=== PATIENT | male | born 1935 | race Caucasian/White ===

== ENCOUNTER 2018-02-03 08:12 | Emergency (ER) | payer MEDICARE, OTHER ==
--- NOTE | 2018-02-03 08:22 | EDM.PDOC ---
ED HPI GENERAL MEDICAL PROBLEM - General Stated Complaint: SWOLLEN HAND Time Seen by Provider: 02/03/18 08:12 Source of Information: Reports: Patient, Family History Limitations: Reports: No Limitations - History of Present Illness INITIAL COMMENTS - FREE TEXT/NARRATIVE: 82 y.o.w.m came to the ed with his family due to left shoulder pain, left forearm swelling in the past few days. Pt is not able to ab duct his left shoulder. Pt does not remember a trauma. He noticed his left shoulder is sweller. The worst pain at his lat aspect of his left shoulder (deltoid) muscle. No other acute medical issues. BP 155/59 Pulse 76 RR 20 Pulse ox 98% on RA temp 36.8 pulse 65 Onset Date: 02/02/18 Onset Time: 09:00 Duration: Intermittent Location: Reports: Upper Extremity, Left Quality: Reports: Ache, Dull, Pressure Severity: Moderate Improves with: Reports: None, Rest Worsens with: Reports: Movement Context: Reports: Trauma (does not remmember a trauma) Associated Symptoms: Reports: No Other Symptoms Left Shoulder Pain Score (Numeric/FACES): 2 - Related Data Allergies Allergy/AdvReac Type Severity Reaction Status Date / Time aspirin Allergy Severe Anaphylactic Verified 02/03/18 08:34 Shock Home Meds: Home Meds Hydrochlorothiazide 25 mg PO DAILY 02/03/18 [History] amLODIPine Besylate [Amlodipine Besylate] 5 mg PO DAILY 02/03/18 [History] Review of Systems - Review of Systems Review Of Systems: See Below Constitutional: Reports: No Symptoms Eyes: Reports: No Symptoms Ears: Reports: No Symptoms Nose: Reports: No Symptoms Mouth/Throat: Reports: No Symptoms Respiratory: Reports: No Symptoms Cardiovascular: Reports: No Symptoms GI/Abdominal: Reports: No Symptoms Genitourinary: Reports: No Symptoms Musculoskeletal: Reports: Shoulder Pain Skin: Reports: No Symptoms Neurological: Reports: No Symptoms Psychiatric: Reports: No Symptoms ED EXAM, GENERAL - Physical Exam Exam: See Below Exam Limited By: Physical Impairment General Appearance: Alert, WD/WN, Mild Distress Eye Exam: Bilateral Eye: Normal Inspection Ears: Normal External Exam Ear Exam: Bilateral Ear: Auricle Normal Nose: Normal Inspection, Normal Mucosa, No Blood Throat/Mouth: Normal Inspection, Normal Lips Head: Atraumatic, Normocephalic Neck: Normal Inspection, Supple, Non-Tender, Full Range of Motion Respiratory/Chest: No Respiratory Distress, Lungs Clear, Normal Breath Sounds ( with poor insp effort) Cardiovascular: Normal Peripheral Pulses Peripheral Pulses: 1+: Brachial (R) GI/Abdominal: Normal Bowel Sounds, Soft, Non-Tender, No Organomegaly (Male) Exam: Deferred Rectal (Males) Exam: Deferred Back Exam: Normal Inspection Extremities: Joint Swelling (left shoulder), Limited Range of Motion Neurological: Alert, Oriented, CN II-XII Intact, Normal Cognition, No Motor/ Sensory Deficits, Abnormal Gait (baseline) Psychiatric: Normal Affect, Normal Mood Skin Exam: Warm, Dry, Intact, Normal Color, No Rash Lymphatic: No Adenopathy Course - Vital Signs Text/Narrative:: 82 y.o.w.m came to the ed with his family due to left shoulder pain, left forearm swelling in the past few days. Pt is not able to ab duct his left shoulder. Pt does not remember a trauma. He noticed his left shoulder is sweller. The worst pain at his lat aspect of his left shoulder (deltoid) muscle. No other acute medical issues. BP 155/59 Pulse 76 RR 20 Pulse ox 98% on RA temp 36.8 pulse 65 PE: Thin 82 y.o.w.m with left shoulder pain and forearm swelling for 3 - 5 days. Limited ROM left shoulder. Imagin: Left sided closed humeral head Fx, comminuted, official report is pending Impression: Left sided closed humeral head Fx, comminuted Tx: Armsling Reexam: Improved Plan: Ice, Motrin, F/U with Dr. Hurd at 3 pm Wednesday. Last Recorded V/S: Last Vital Signs Temp 36.7 C 02/03/18 09:45 Pulse 75 02/03/18 09:45 Resp 20 02/03/18 09:45 BP 158/60 H 02/03/18 09:45 Pulse Ox 100 02/03/18 09:45 Departure - Departure Time of Disposition: 09:20 Disposition: Home, Self-Care 01 Condition: Good Clinical Impression: Fracture of humeral head, left, closed Qualifiers: Encounter type: initial encounter Qualified Code(s): S42.292A - Other displaced fracture of upper end of left humerus, initial encounter for closed fracture - Discharge Information Referrals: Chester Hernandez MD [Primary Care Provider] - Claude Hurd DO [Physician] - Forms: ED Department Discharge Additional Instructions: Please wear an armsling on your left shoulder, apply ice and take motin for pain. elevate left shoulder if possible. Please come back to the ed if your symptoms get worse acutely
--- NOTE | 2018-02-04 10:30 | CR ---
INDICATION: Shoulder pain. LEFT SHOULDER: Three views of the left shoulder revealed a severely comminuted fracture of the proximal humeral metaphysis extending through the surgical and anatomic neck area with relatively mild deformity - lateral angulation is suggested at the fracture site. Some impaction of fracture fragments may be present. There also appears to be subluxation of the humeral joint surface with respect to the glenoid fossa. Adjacent ribs appear to be normal. Overall demineralization is suggested, compatible with osteomalacia or osteoporosis - correlate clinically. MTDD
== END 2018-02-03 09:45 | disposition home or self-care (01) ==
LOC: FB.ED 08:12
DX: S42.202A Unspecified fracture of upper end of left humerus, initial encounter for closed fracture (principal); Z88.6 Allergy status to analgesic agent; Z79.899 Other long term (current) drug therapy; X58.XXXA Exposure to other specified factors, initial encounter
CPT/HCPCS: 73030-LT; 99283

== ENCOUNTER 2021-08-04 06:51 | Inpatient (IN) | payer MEDICARE, OTHER ==
[2021-08-04] MEDS ORDERED: Sodium Chloride 0.9% 1,000 ML IV SCH (07:30)
--- NOTE | 2021-08-04 07:38 | EDM.PDOC ---
ED HPI GENERAL MEDICAL PROBLEM - General Stated Complaint: WEAKNESS Time Seen by Provider: 08/04/21 07:15 Source of Information: Reports: Patient, Family History Limitations: Reports: No Limitations - History of Present Illness INITIAL COMMENTS - FREE TEXT/NARRATIVE: Patient presented to the ED because of frequent falls due to generalized weakness especially his legs. He had fallen 4 times this weak the last one at 1 am this morning when he went to the rec room his legs gave out and fell. There was no LOC but c/o left hip pain. He has abrasion on his head and multiple skin tears on both arms. He also has soft stools for 1 month now and poor oral intake. There is no N/V or abdominal pain. No urinary symptoms, fever, chills, cough or cold. He was vaccinated with Covid and denies having any recent exposure. - Related Data Allergies Allergy/AdvReac Type Severity Reaction Status Date / Time aspirin Allergy Severe Anaphylactic Verified 02/03/18 08:34 Shock Home Meds: Home Meds amLODIPine Besylate [Amlodipine Besylate] 5 mg PO DAILY 02/03/18 [History] hydroCHLOROthiazide [Hydrochlorothiazide] 25 mg PO DAILY 02/03/18 [History] Past Medical History - Past Health History Medical/Surgical History: Denies Medical/Surgical History Cardiovascular History: Reports: Hypertension Social & Family History - Caffeine Use Caffeine Use: Reports: Coffee ED ROS GENERAL - Review of Systems Review Of Systems: See Below Constitutional: Reports: Weakness HEENT: Reports: No Symptoms Respiratory: Reports: No Symptoms Cardiovascular: Reports: No Symptoms Endocrine: Reports: No Symptoms GI/Abdominal: Reports: Diarrhea : Reports: No Symptoms Musculoskeletal: Reports: No Symptoms Skin: Reports: Change in Color Neurological: Reports: No Symptoms ED EXAM, GENERAL - Physical Exam Exam: See Below Exam Limited By: No Limitations General Appearance: Alert, No Apparent Distress Ears: Normal External Exam, Normal Canal, Hearing Grossly Normal Nose: Normal Inspection, Normal Mucosa, No Blood Throat/Mouth: Normal Inspection, Normal Lips, Normal Teeth, Normal Gums Head: Atraumatic, Normocephalic Neck: Normal Inspection, Supple, Non-Tender, Full Range of Motion Respiratory/Chest: No Respiratory Distress, Lungs Clear, Normal Breath Sounds, No Accessory Muscle Use, Chest Non-Tender Cardiovascular: Normal Peripheral Pulses, Regular Rate, Rhythm, No Edema, No Gal lop, No JVD, No Murmur, No Rub GI/Abdominal: Normal Bowel Sounds, Soft, Non-Tender, No Organomegaly, No Distention, No Abnormal Bruit, No Mass Back Exam: Normal Inspection, Full Range of Motion Extremities: Normal Inspection, Normal Range of Motion, Other (tenderness over the left hip) Neurological: Alert, Oriented, CN II-XII Intact, Normal Cognition Psychiatric: Normal Affect Skin Exam: Warm, Other (fungus toe nails and groin area) Course - Vital Signs Text/Narrative:: Lab/EKG/Xray-hip, Head CT resultwas reviewed and discussed with patient NS 1 L in 2 hours Covid-negative Code status:DNR/DNI Last Recorded V/S: Last Vital Signs Temp 36.4 C 08/04/21 06:55 Pulse 72 08/04/21 06:55 Resp 18 08/04/21 06:55 BP 148/72 H 08/04/21 06:55 Pulse Ox 98 08/04/21 06:55 - Orders/Labs/Meds Orders: Active Orders 24 hr Category Date Time Status Patient Status Manage Transfer [TRANSFER] Routine ADT 08/04/21 09:50 Ordered Chest 1V Frontal [CR] Stat Exams 08/04/21 07:14 Taken Head wo Cont [CT] Stat Exams 08/04/21 07:14 Taken Hip Min 2V or 3V w Pelvis Lt [CR] Stat Exams 08/04/21 07:41 Taken CORONAVIRUS COVID-19 CANDI [MOLEC] Stat Lab 08/04/21 08:30 Ordered Sodium Chloride 0.9% [Normal Saline] 1,000 ml Med 08/04/21 07:30 Active IV ASDIRECTED Sodium Chloride 0.9% [Saline Flush] Med 08/04/21 07:14 Active 10 ml FLUSH ASDIRECTED PRN Saline Lock Insert [OM.PC] Routine Oth 08/04/21 07:14 Ordered EKG 12 Lead [EK] Routine Ther 08/04/21 07:14 Ordered Medication Orders Sodium Chloride (Normal Saline) 1,000 mls @ 500 mls/hr IV ASDIRECTED MAKENZIE Sodium Chloride (Sodium Chloride 0.9% 10 Ml Syringe) 10 ml FLUSH ASDIRECTED PRN PRN Reason: Keep Vein Open Labs: Laboratory Tests 08/04/21 08/04/21 08/04/21 Range/Units 07:30 08:00 08:00 WBC 9.7 (3.2-10.1) x10-3/uL RBC 4.05 (3.90-5.90) x10(6)uL Hgb 13.4 (12.9-17.7) g/dL Hct 38.9 (38.3-50.1) % MCV 96.0 (80.8-98.7) fL MCH 33.0 (27.0-33.3) pg MCHC 34.3 (28.7-35.3) g/dL RDW 17.0 H (12.4-15.0) % Plt Count 215 (117-477) x10(3)uL MPV 8.7 (6.7-11.0) fL Neut % (Auto) 85.3 H (40.3-71.8) % Lymph % (Auto) 3.9 L (15.8-45.3) % [place] % (Auto) 10.5 (5.5-15.2) % Eos % (Auto) 0.1 (0.1-6.8) % Baso % (Auto) 0.2 L (0.3-3.8) % Neut # (Auto) 8.3 H (1.7-6.9) x10-3/uL Lymph # (Auto) 0.4 L (0.5-4.5) x10-3/uL [place] # (Auto) 1.0 (0.0-1.2) x10-3/uL Eos # (Auto) 0.0 (0.0-0.6) x10-3/uL Baso # (Auto) 0.0 (0.0-0.3) x10-3/uL Sodium 118 L* (135-145) mmol/L Potassium 3.2 L (3.5-5.3) mmol/L Chloride 83 L* (100-110) mmol/L Carbon Dioxide 26 (21-32) mmol/L BUN 12 (7-18) mg/dL Creatinine 0.7 (0.70-1.30) mg/dL Est Cr Clr Drug Dosing TNP Estimated GFR (MDRD) > 60 (>60) BUN/Creatinine Ratio 17.1 (9-20) Glucose 101 (80-116) mg/dL Calcium 8.4 L (8.6-10.2) mg/dL Total Bilirubin 2.1 H (0.1-1.3) mg/dL AST 22 (5-25) IU/L ALT 18 (12-36) U/L Alkaline Phosphatase 57 (56-112) IU/L Creatine Kinase 164 H (60-160) IU/L Troponin I (4.0-60.3) pg/mL Total Protein 6.0 (6.0-8.0) g/dL Albumin 3.3 (3.2-4.6) g/dL Globulin 2.7 g/dL Albumin/Globulin Ratio 1.2 Urine Color Yellow (YELLOW) Urine Appearance Slightly cloudy (CLEAR) Urine pH 7.0 H (5.0-6.5) Ur Specific [place] 1.010 (1.010-1.025) Urine Protein Negative (NEGATIVE) mg/dL Urine Glucose (UA) Normal (NORMAL) mg/dL Urine Ketones 15 H (NEGATIVE) mg/dL Urine Occult Blood Large H (NEGATIVE) Urine Nitrite Negative (NEGATIVE) Urine Bilirubin Negative (NEGATIVE) Urine Urobilinogen 4 H (NEGATIVE) mg/dL Ur Leukocyte Esterase Negative (NEGATIVE) Urine RBC 20-30 H (0-5) Urine WBC 0-5 (0-5) Ur Squamous Epith Cells Few H (NS,R,O) Urine Bacteria Many H (NS) 08/04/21 Range/Units 08:00 WBC (3.2-10.1) x10-3/uL RBC (3.90-5.90) x10(6)uL Hgb (12.9-17.7) g/dL Hct (38.3-50.1) % MCV (80.8-98.7) fL MCH (27.0-33.3) pg MCHC (28.7-35.3) g/dL RDW (12.4-15.0) % Plt Count (117-477) x10(3)uL MPV (6.7-11.0) fL Neut % (Auto) (40.3-71.8) % Lymph % (Auto) (15.8-45.3) % [place] % (Auto) (5.5-15.2) % Eos % (Auto) (0.1-6.8) % Baso % (Auto) (0.3-3.8) % Neut # (Auto) (1.7-6.9) x10-3/uL Lymph # (Auto) (0.5-4.5) x10-3/uL [place] # (Auto) (0.0-1.2) x10-3/uL Eos # (Auto) (0.0-0.6) x10-3/uL Baso # (Auto) (0.0-0.3) x10-3/uL Sodium (135-145) mmol/L Potassium (3.5-5.3) mmol/L Chloride (100-110) mmol/L Carbon Dioxide (21-32) mmol/L BUN (7-18) mg/dL Creatinine (0.70-1.30) mg/dL Est Cr Clr Drug Dosing Estimated GFR (MDRD) (>60) BUN/Creatinine Ratio (9-20) Glucose (80-116) mg/dL Calcium (8.6-10.2) mg/dL Total Bilirubin (0.1-1.3) mg/dL AST (5-25) IU/L ALT (12-36) U/L Alkaline Phosphatase (56-112) IU/L Creatine Kinase (60-160) IU/L Troponin I 60.0 (4.0-60.3) pg/mL Total Protein (6.0-8.0) g/dL Albumin (3.2-4.6) g/dL Globulin g/dL Albumin/Globulin Ratio Urine Color (YELLOW) Urine Appearance (CLEAR) Urine pH (5.0-6.5) Ur Specific [place] (1.010-1.025) Urine Protein (NEGATIVE) mg/dL Urine Glucose (UA) (NORMAL) mg/dL Urine Ketones (NEGATIVE) mg/dL Urine Occult Blood (NEGATIVE) Urine Nitrite (NEGATIVE) Urine Bilirubin (NEGATIVE) Urine Urobilinogen (NEGATIVE) mg/dL Ur Leukocyte Esterase (NEGATIVE) Urine RBC (0-5) Urine WBC (0-5) Ur Squamous Epith Cells (NS,R,O) Urine Bacteria (NS) Meds: Medications Generic Name Dose Route Start Last Admin Trade Name Freq PRN Reason Stop Dose Admin Sodium Chloride 1,000 mls @ 500 mls/hr 08/04/21 07:30 Normal Saline IV ASDIRECTED MAKENZIE Sodium Chloride 10 ml 08/04/21 07:14 Sodium Chloride 0.9% 10 Ml Syringe FLUSH ASDIRECTED PRN Keep Vein Open Departure - Departure Time of Disposition: 10:00 Disposition: Admitted As Inpatient 67 Condition: Good Clinical Impression: Frequent falls, Head injury, Contusion, hip, Hypomagnesemia, Hypokalemia, Skin tear, Cutaneous candidiasis, Onychomycosis - Discharge Information Referrals: PCP,None [Primary Care Provider] - Sepsis Event Note (ED) - Focused Exam Vital Signs: Vital Signs Temp Pulse Resp BP Pulse Ox 08/04/21 06:55 36.4 C 72 18 148/72 H 98 - My Orders Last 24 Hours: My Active Orders 08/04/21 07:14 Chest 1V Frontal [CR] Stat Head wo Cont [CT] Stat Sodium Chloride 0.9% [Saline Flush] 10 ml FLUSH ASDIRECTED PRN Saline Lock Insert [OM.PC] Routine EKG 12 Lead [EK] Routine 08/04/21 07:30 Sodium Chloride 0.9% [Normal Saline] 1,000 ml IV ASDIRECTED 08/04/21 07:41 Hip Min 2V or 3V w Pelvis Lt [CR] Stat 08/04/21 08:30 CORONAVIRUS COVID-19 CANDI [MOLEC] Stat 08/04/21 09:50 Patient Status Manage Transfer [TRANSFER] Routine - Assessment/Plan Last 24 Hours: My Active Orders 08/04/21 07:14 Chest 1V Frontal [CR] Stat Head wo Cont [CT] Stat Sodium Chloride 0.9% [Saline Flush] 10 ml FLUSH ASDIRECTED PRN Saline Lock Insert [OM.PC] Routine EKG 12 Lead [EK] Routine 08/04/21 07:30 Sodium Chloride 0.9% [Normal Saline] 1,000 ml IV ASDIRECTED 08/04/21 07:41 Hip Min 2V or 3V w Pelvis Lt [CR] Stat 08/04/21 08:30 CORONAVIRUS COVID-19 CANDI [MOLEC] Stat 08/04/21 09:50 Patient Status Manage Transfer [TRANSFER] Routine
[2021-08-04] MEDS: Sodium Chloride 0.9% 10 ML Syringe FLUSH PRN (07:50)
--- NOTE | 2021-08-04 10:50 | PCM.EKG ---
#1 Interpretation EKG Date: 08/04/21 Time: 07:40 Rhythm: A-Fib Rate (Beats/Min): 71 Dexter: Normal P-Wave: Present QRS: Normal ST-T: Normal QT: Prolonged Comparison: NA - No Prior EKG EKG Interpretation Comments: Afib
[2021-08-04] MEDS ORDERED: Labetalol 20 MG/4 ML Syringe IVPUSH PRN (10:57)
--- NOTE | 2021-08-04 11:10 | PCM.HP.2 ---
H&P History of Present Illness - General Date of Service: 08/04/21 Admit Problem/Dx: Admission Diagnosis/Problem Admission Diagnosis/Problem Weakness Source of Information: Patient, Old Records, Provider - History of Present Illness Initial Comments - Free Text/Narative: Patient was taken to the emergency department due to frequent falls, his last fall was while going to the restroom early this morning at his home. He could not get up so he phoned a friend for help. He states that he has fallen several times over the last several weeks. These are falls due to "my legs give out" and weakness. Imaging in the emergency department was negative for acute fracture or head injury. He did have significant hyponatremia at 118. Review of his past medical records shows actually normal sodium in March or April of this year, approximately 3 to 4 months ago. He was started on blood pressure medication, amlodipine and hydrochlorothiazide. He has recently complained of a rash in his groin and treated with steroid cream and barrier creams. He also complains of difficulty urinating. 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 Patient will be admitted to inpatient for hyponatremia, falls, weakness. We will get a CT of the abdomen and pelvis secondary to the above symptoms and history of benign colon neoplasm. - Related Data Allergies/Adverse Reactions: Allergies Allergy/AdvReac Type Severity Reaction Status Date / Time aspirin Allergy Severe Anaphylactic Verified 02/03/18 08:34 Shock Home Medications: Home Meds amLODIPine Besylate [Amlodipine Besylate] 5 mg PO DAILY 02/03/18 [History] hydroCHLOROthiazide [Hydrochlorothiazide] 25 mg PO DAILY 02/03/18 [History] Past Medical History - Past Health History Medical/Surgical History: Denies Medical/Surgical History HEENT History: Reports: Hard of Hearing Cardiovascular History: Reports: Hypertension Gastrointestinal History: Reports: Other (See Below) Other Gastrointestinal History: Bowel incontinence. Genitourinary History: Reports: Urinary Incontinence Musculoskeletal History: Reports: Other (See Below) Other Musculoskeletal History: History of right shoulder problem. Dermatologic History: Reports: Other (See Below) Other Dermatologic History: States he had a skin biopsy at [place]. Social & Family History - Tobacco Use Years of Tobacco use: 68 Packs/Tins Daily: 0.5 - Caffeine Use Caffeine Use: Reports: Coffee H&P Review of Systems - Review of Systems: Review Of Systems: See Below General: Reports: Weakness HEENT: Reports: No Symptoms Pulmonary: Reports: No Symptoms Cardiovascular: Reports: No Symptoms Gastrointestinal: Reports: Abdominal Pain Genitourinary: Reports: Retention Musculoskeletal: Reports: Arm Pain, Leg Pain Skin: Reports: Rash, Wound Psychiatric: Reports: No Symptoms Neurological: Reports: Difficulty Walking, Weakness Hematologic/Lymphatic: Reports: No Symptoms Immunologic: Reports: No Symptoms Exam - Exam Exam: See Below - Vital Signs Vital Signs: Last Vital Signs Temp 36.4 C 08/04/21 06:55 Pulse 72 08/04/21 06:55 Resp 18 08/04/21 06:55 BP 148/72 H 08/04/21 06:55 Pulse Ox 98 08/04/21 06:55 Weight: 70.307 kg - Exam Quality Assessment: Supplemental Oxygen, DVT Prophylaxis General: Alert, Oriented, Cooperative HEENT: EOMI Neck: Supple Lungs: Decreased Breath Sounds, Crackles Cardiovascular: Regular Rate, Regular Rhythm, Systolic Murmur GI/Abdominal Exam: Normal Bowel Sounds, Distended, Tender Extremities: Pedal Edema Peripheral Pulses: 1+: Dorsalis Pedis (L), Dorsalis Pedis (R), 2+: Radial (L), Radial (R) Skin: Warm, Dry, Intact Psychiatric: Depressed - Patient Data Lab Results Last 24 hrs: Laboratory Results - last 24 hr 08/04/21 08/04/21 08/04/21 Range/Units 07:30 08:00 08:00 WBC 9.7 (3.2-10.1) x10-3/uL RBC 4.05 (3.90-5.90) x10(6)uL Hgb 13.4 (12.9-17.7) g/dL Hct 38.9 (38.3-50.1) % MCV 96.0 (80.8-98.7) fL MCH 33.0 (27.0-33.3) pg MCHC 34.3 (28.7-35.3) g/dL RDW 17.0 H (12.4-15.0) % Plt Count 215 (117-477) x10(3)uL MPV 8.7 (6.7-11.0) fL Neut % (Auto) 85.3 H (40.3-71.8) % Lymph % (Auto) 3.9 L (15.8-45.3) % [place] % (Auto) 10.5 (5.5-15.2) % Eos % (Auto) 0.1 (0.1-6.8) % Baso % (Auto) 0.2 L (0.3-3.8) % Neut # (Auto) 8.3 H (1.7-6.9) x10-3/uL Lymph # (Auto) 0.4 L (0.5-4.5) x10-3/uL [place] # (Auto) 1.0 (0.0-1.2) x10-3/uL Eos # (Auto) 0.0 (0.0-0.6) x10-3/uL Baso # (Auto) 0.0 (0.0-0.3) x10-3/uL Sodium 118 L* (135-145) mmol/L Potassium 3.2 L (3.5-5.3) mmol/L Chloride 83 L* (100-110) mmol/L Carbon Dioxide 26 (21-32) mmol/L BUN 12 (7-18) mg/dL Creatinine 0.7 (0.70-1.30) mg/dL Est Cr Clr Drug Dosing TNP Estimated GFR (MDRD) > 60 (>60) BUN/Creatinine Ratio 17.1 (9-20) Glucose 101 (80-116) mg/dL Calcium 8.4 L (8.6-10.2) mg/dL Total Bilirubin 2.1 H (0.1-1.3) mg/dL AST 22 (5-25) IU/L ALT 18 (12-36) U/L Alkaline Phosphatase 57 (56-112) IU/L Creatine Kinase 164 H (60-160) IU/L Troponin I (4.0-60.3) pg/mL Total Protein 6.0 (6.0-8.0) g/dL Albumin 3.3 (3.2-4.6) g/dL Globulin 2.7 g/dL Albumin/Globulin Ratio 1.2 Urine Color Yellow (YELLOW) Urine Appearance Slightly cloudy (CLEAR) Urine pH 7.0 H (5.0-6.5) Ur Specific [place] 1.010 (1.010-1.025) Urine Protein Negative (NEGATIVE) mg/dL Urine Glucose (UA) Normal (NORMAL) mg/dL Urine Ketones 15 H (NEGATIVE) mg/dL Urine Occult Blood Large H (NEGATIVE) Urine Nitrite Negative (NEGATIVE) Urine Bilirubin Negative (NEGATIVE) Urine Urobilinogen 4 H (NEGATIVE) mg/dL Ur Leukocyte Esterase Negative (NEGATIVE) Urine RBC 20-30 H (0-5) Urine WBC 0-5 (0-5) Ur Squamous Epith Cells Few H (NS,R,O) Urine Bacteria Many H (NS) SARS-CoV-2 RNA (CANDI) (NEGATIVE) 08/04/21 08/04/21 Range/Units 08:00 08:30 WBC (3.2-10.1) x10-3/uL RBC (3.90-5.90) x10(6)uL Hgb (12.9-17.7) g/dL Hct (38.3-50.1) % MCV (80.8-98.7) fL MCH (27.0-33.3) pg MCHC (28.7-35.3) g/dL RDW (12.4-15.0) % Plt Count (117-477) x10(3)uL MPV (6.7-11.0) fL Neut % (Auto) (40.3-71.8) % Lymph % (Auto) (15.8-45.3) % [place] % (Auto) (5.5-15.2) % Eos % (Auto) (0.1-6.8) % Baso % (Auto) (0.3-3.8) % Neut # (Auto) (1.7-6.9) x10-3/uL Lymph # (Auto) (0.5-4.5) x10-3/uL [place] # (Auto) (0.0-1.2) x10-3/uL Eos # (Auto) (0.0-0.6) x10-3/uL Baso # (Auto) (0.0-0.3) x10-3/uL Sodium (135-145) mmol/L Potassium (3.5-5.3) mmol/L Chloride (100-110) mmol/L Carbon Dioxide (21-32) mmol/L BUN (7-18) mg/dL Creatinine (0.70-1.30) mg/dL Est Cr Clr Drug Dosing Estimated GFR (MDRD) (>60) BUN/Creatinine Ratio (9-20) Glucose (80-116) mg/dL Calcium (8.6-10.2) mg/dL Total Bilirubin (0.1-1.3) mg/dL AST (5-25) IU/L ALT (12-36) U/L Alkaline Phosphatase (56-112) IU/L Creatine Kinase (60-160) IU/L Troponin I 60.0 (4.0-60.3) pg/mL Total Protein (6.0-8.0) g/dL Albumin (3.2-4.6) g/dL Globulin g/dL Albumin/Globulin Ratio Urine Color (YELLOW) Urine Appearance (CLEAR) Urine pH (5.0-6.5) Ur Specific [place] (1.010-1.025) Urine Protein (NEGATIVE) mg/dL Urine Glucose (UA) (NORMAL) mg/dL Urine Ketones (NEGATIVE) mg/dL Urine Occult Blood (NEGATIVE) Urine Nitrite (NEGATIVE) Urine Bilirubin (NEGATIVE) Urine Urobilinogen (NEGATIVE) mg/dL Ur Leukocyte Esterase (NEGATIVE) Urine RBC (0-5) Urine WBC (0-5) Ur Squamous Epith Cells (NS,R,O) Urine Bacteria (NS) SARS-CoV-2 RNA (CANDI) Negative (NEGATIVE) Result Diagrams: 08/04/21 08:00 08/04/21 08:00 Sepsis Event Note - Focused Exam Vital Signs: Vital Signs Temp Pulse Resp BP Pulse Ox 08/04/21 06:55 36.4 C 72 18 148/72 H 98 - Problem List (1) Hyponatremia SNOMED Code(s): 64071517 ICD Code: E87.1 - HYPO-OSMOLALITY AND HYPONATREMIA Status: Acute Current Visit: Yes (2) Hypertension SNOMED Code(s): 69376537 ICD Code: I10 - ESSENTIAL (PRIMARY) HYPERTENSION Status: Chronic Current Visit: Yes (3) Contusion, hip SNOMED Code(s): 83111701 ICD Code: S70.00XA - CONTUSION OF UNSPECIFIED HIP, INITIAL ENCOUNTER Status: Acute Current Visit: Yes (4) Cutaneous candidiasis SNOMED Code(s): 15710932 ICD Code: B37.2 - CANDIDIASIS OF SKIN AND NAIL Status: Acute Current Visit: Yes (5) Frequent falls SNOMED Code(s): 146975031 ICD Code: R29.6 - REPEATED FALLS Status: Acute Current Visit: Yes (6) Head injury SNOMED Code(s): 13014810 ICD Code: S09.90XA - UNSPECIFIED INJURY OF HEAD, INITIAL ENCOUNTER Status: Acute Current Visit: Yes (7) Skin tear SNOMED Code(s): 550938993 ICD Code: CTW7883 - Status: Acute Current Visit: Yes (8) Hypochloremia SNOMED Code(s): 82275080 ICD Code: E87.8 - OTH DISORDERS OF ELECTROLYTE AND FLUID BALANCE, NEC Status: Acute Current Visit: Yes (9) Hypokalemia SNOMED Code(s): 50089008 ICD Code: E87.6 - HYPOKALEMIA Status: Acute Current Visit: Yes (10) Bilateral lower extremity edema SNOMED Code(s): 588589127, 08552306, 938717072 ICD Code: R60.0 - LOCALIZED EDEMA Status: Acute Current Visit: Yes Problem List Initiated/Reviewed/Updated: Yes Orders Last 24hrs: Active Orders 24 hr Category Date Time Status Patient Status Manage Transfer [TRANSFER] Routine ADT 08/04/21 09:50 Active Patient Status [ADT] Routine ADT 08/04/21 10:31 Active Antiembolic Devices [RC] .Routine Care 08/04/21 10:32 Active Pulse Oximetry [RC] PRN Care 08/04/21 10:31 Active VTE/DVT Education [RC] Click to Edit Care 08/04/21 10:32 Active Vital Signs [RC] Q4H Care 08/04/21 10:31 Active Fluid Restriction [DIET] Diet 08/04/21 Dinner Active Heart Healthy Diet [DIET] Diet 08/04/21 Lunch Active Abdomen Pelvis w Cont [CT] Routine Exams 08/04/21 10:34 Ordered Chest 1V Frontal [CR] Stat Exams 08/04/21 07:14 Taken Head wo Cont [CT] Stat Exams 08/04/21 07:14 Taken Hip Min 2V or 3V w Pelvis Lt [CR] Stat Exams 08/04/21 07:41 Taken CULTURE URINE [RM] Routine Lab 08/04/21 07:30 Received Enoxaparin [Lovenox] Med 08/04/21 21:00 Ordered 40 mg SUBCUT DAILY Labetalol [Normodyne] Med 08/04/21 10:57 Ordered 10 mg IVPUSH Q6H PRN Sodium Chloride Med 08/04/21 11:00 Active 1 gm PO BID Sodium Chloride 0.9% [Normal Saline] 1,000 ml Med 08/04/21 07:30 Active IV ASDIRECTED Sodium Chloride 0.9% [Saline Flush] Med 08/04/21 07:14 Active 10 ml FLUSH ASDIRECTED PRN DVT/VTE Prophylaxis Reflex [OM.PC] Per Unit Routine Oth 08/04/21 10:31 Ordered Saline Lock Insert [OM.PC] Routine Oth 08/04/21 07:14 Ordered Resuscitation Status Routine Resus Stat 08/04/21 10:31 Ordered EKG 12 Lead [EK] Routine Ther 08/04/21 07:14 Ordered Medication Orders Enoxaparin Sodium (Enoxaparin 40 Mg/0.4 Ml Syringe) 40 mg SUBCUT BEDTIME MAKENZIE Sodium Chloride (Normal Saline) 1,000 mls @ 500 mls/hr IV ASDIRECTED MAKENZIE Last Admin: 08/04/21 08:30 Dose: 500 mls/hr Documented by: JOSE Labetalol HCl (Labetalol 20 Mg/4 Ml Syringe) 10 mg IVPUSH Q6H PRN; Protocol PRN Reason: Hypertension Sodium Chloride (Sodium Chloride 0.9% 10 Ml Syringe) 10 ml FLUSH ASDIRECTED PRN PRN Reason: Keep Vein Open Last Admin: 08/04/21 07:50 Dose: 10 ml Documented by: JOSE Sodium Chloride (Sodium Chloride 1 Gm Tab) 1 gm PO BID [facility] Assessment/Plan Comment:: 1. Admit to inpatient. CT abdomen and pelvis with contrast to delineate source of abdominal pain. PT/OT eval and treat 2. Hyponatremia, hypochloremia, hypokalemia: Fluid restriction, salt/sodium chloride tablets, store potassium, check magnesium, monitor lites 3. Hypertension: Hold patient's amlodipine secondary to bilateral lower extremity edema and hold hydrochlorothiazide secondary to electrolyte abnormalities as above. Patient will be given labetalol 10 mg every 6 hours as needed for systolic blood pressure greater than 160 or diastolic blood pressure greater than 100. Labetalol will be held if pulse rate is less than 60. 4. Bilateral lower extremity edema: Patient will not be given Lasix at this time secondary to electrolyte abnormalities as above, patient will be given compression stockings 4. Patient does not have a obvious urinary tract infection but we will culture the urine 5. DVT prophylaxis: enoxaparin 40 mg subcu nightly 6. Disposition: She will likely need acute rehabilitation and/or group home/assisted living placement. Recommendations based on patient improvement.
[2021-08-04] MEDS ORDERED: Ketoconazole 2% Crm 30 GM Tube TOP SCH (11:45)
[2021-08-04] MEDS ORDERED: Iopamidol 755 Mg/ML 75 ML Bottle IV ONE (12:00)
[2021-08-04] MEDS ORDERED: Diatrizoate Meglumine/Diatrizoate Sodium 37% 30 ML Bottle PO ONE (12:00)
[2021-08-04] MEDS: Nystatin Crm 15 GM Tube TOP SCH ×2 (13:41→21:33)
[2021-08-04] MEDS: Sodium Chloride 1 GM Tab PO SCH ×2 (13:41→22:37)
--- NOTE | 2021-08-04 15:29 | CT ---
INDICATION: Abdominal pain - pelvic tenderness. CT ABDOMEN AND PELVIS WITH CONTRAST: Spiral 3.75 mm axial sections were obtained through the abdomen and pelvis with oral and IV contrast (75 mL Isovue- 370 at 2 mL/second), with sagittal and coronal reconstructions 08/04/21 - no comparisons. TOTAL EXAM DLP: 600.67 mGy/cm. The right lung and pleural space were unremarkable. On the left, there appears to be some minimal patchy infiltrate at the left lung base - left lower lobe. This could represent some minimal pneumonia and/or fibrosis and should be correlated clinically. The heart did not appear enlarged. Aortic and mitral calcifications are suggested. There may also be coronary artery calcifications. The liver appeared normal, except to note two low-density lesions, small and tiny in the right lobe of the liver, mostly inferiorly. The pancreas and spleen appeared to be normal. No gallstones were demonstrated. The adrenal glands were unremarkable, except for slight prominence. The kidneys showed evidence of low-density lesions, compatible with simple cysts with three on the left and one on the right. Renal fascial thickening is noted, which may represent a degree of pyelosinus backflow due to bilateral ureteral obstruction at the urinary bladder - outlet obstruction of the urinary bladder with urinary bladder retention producing obstructive uropathy bilaterally. The left kidney showed no evidence of obstructive uropathy. On the right, there is prominence of the ureter extending to the urinary bladder. No definite calculus was seen in the ureter on the right or at the ureterovesical junction on the right. However, there were some calcific densities suggested in the urinary bladder near the left ureteral junction. The left ureter also appears to be slightly prominent over much of its course. The presence of the somewhat prominent ureters bilaterally may be on the basis of outlet obstruction of the urinary bladder, which appears rather distended. It measures 14.5 x 12.6 x 13.0 cm in diameter. This certainly may represent urinary retention which could be on the basis of bladder outlet obstruction, but should be correlated clinically. The prostate did not appear grossly enlarged, but was enlarged to a moderate degree, measuring 59 x 50 x approximately 47 mm. The retroperitoneum showed no definite evidence of a mass. Calcifications are fairly extensive in aorta, with no aneurysmic dilatation. Fairly extensive arterial calcifications are noted at the proximal renal arteries, especially the right iliac and femoral arteries. Hypertrophic degenerative changes and disc disease are noted in the lumbar spine with disc disease at L4-5 and L5-S1. IMPRESSION: 1. Fairly marked distention of the urinary bladder with relative dilatation of the pyelocalyceal systems bilaterally, likely on that basis. There do appear to be some minimal calcifications within the urinary bladder, etiology indeterminate. No overt calculi were seen within the kidneys, which did show some minimal cystic change. 2. Minimal cysts suggested in the liver. 3. Umbilical hernia, including only fat. 4. Sigmoid diverticulosis without evidence of diverticulitis - ascending diverticulosis without evidence of diverticulitis, transverse diverticulosis without evidence of diverticulitis. 5. ASD. 6. 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 7. Heavy markings at the left lower lobe at the lung base, which may represent minimal patchy pneumonia and/or fibrosis. Report was called to Dr. Hankins at 1407 hours, 08/04/21. [facility]
[2021-08-04] MEDS ORDERED: Loperamide 2 MG Cap PO PRN (18:36)
[2021-08-04] MEDS: Acetaminophen/HYDROcodone 325-5 MG Tab PO PRN (19:17)
[2021-08-04] MEDS: Enoxaparin 40 MG/0.4 ML Syringe SUBCUT SCH (20:24)
[2021-08-05] MEDS ORDERED: Magnesium Sulfate/Water 100 ML IV ONE (07:30)
[2021-08-05] MEDS ORDERED: Magnesium Sulfate/Water 50 ML IV ONE (07:37)
--- NOTE | 2021-08-05 07:49 | PCM.PN ---
- General Info Date of Service: 08/05/21 Admission Dx/Problem (Free Text): Admission Diagnosis/Problem Admission Diagnosis/Problem Weakness Subjective Update: Patient states that he feels much better today and that he feels better than he has in more than a month. He states he is not ready to go dancing yet but feels much better Functional Status: Reports: Pain Controlled, Tolerating Diet, Urinating, Other (Urinary catheter) - Review of Systems General: Reports: Weakness HEENT: Reports: No Symptoms Pulmonary: Reports: No Symptoms Cardiovascular: Reports: No Symptoms Gastrointestinal: Reports: No Symptoms Genitourinary: Reports: Retention Musculoskeletal: Reports: No Symptoms Skin: Reports: No Symptoms Neurological: Reports: No Symptoms Psychiatric: Reports: No Symptoms - Patient Data Vitals - Most Recent: Last Vital Signs Temp 36.4 C 08/05/21 05:55 Pulse 54 L 08/05/21 05:55 Resp 16 08/05/21 05:55 BP 114/47 L 08/05/21 05:55 Pulse Ox 97 08/05/21 05:55 Weight - Most Recent: 72.83 kg I&O - Last 24 Hours: Intake & Output 08/04/21 08/05/21 08/05/21 22:59 06:59 14:59 Intake Total 100 25 Output Total 1400 775 Balance -1300 -750 Lab Results Last 24 Hours: Laboratory Results - last 24 hr 08/04/21 08/04/21 08/04/21 Range/Units 07:30 08:00 08:00 WBC 9.7 (3.2-10.1) x10-3/uL RBC 4.05 (3.90-5.90) x10(6)uL Hgb 13.4 (12.9-17.7) g/dL Hct 38.9 (38.3-50.1) % MCV 96.0 (80.8-98.7) fL MCH 33.0 (27.0-33.3) pg MCHC 34.3 (28.7-35.3) g/dL RDW 17.0 H (12.4-15.0) % Plt Count 215 (117-477) x10(3)uL MPV 8.7 (6.7-11.0) fL Neut % (Auto) 85.3 H (40.3-71.8) % Lymph % (Auto) 3.9 L (15.8-45.3) % [place] % (Auto) 10.5 (5.5-15.2) % Eos % (Auto) 0.1 (0.1-6.8) % Baso % (Auto) 0.2 L (0.3-3.8) % Neut # (Auto) 8.3 H (1.7-6.9) x10-3/uL Lymph # (Auto) 0.4 L (0.5-4.5) x10-3/uL [place] # (Auto) 1.0 (0.0-1.2) x10-3/uL Eos # (Auto) 0.0 (0.0-0.6) x10-3/uL Baso # (Auto) 0.0 (0.0-0.3) x10-3/uL Sodium 118 L* (135-145) mmol/L Potassium 3.2 L (3.5-5.3) mmol/L Chloride 83 L* (100-110) mmol/L Carbon Dioxide 26 (21-32) mmol/L BUN 12 (7-18) mg/dL Creatinine 0.7 (0.70-1.30) mg/dL Est Cr Clr Drug Dosing TNP Estimated GFR (MDRD) > 60 (>60) BUN/Creatinine Ratio 17.1 (9-20) Glucose 101 (80-116) mg/dL Calcium 8.4 L (8.6-10.2) mg/dL Magnesium (1.8-2.5) mg/dL Total Bilirubin 2.1 H (0.1-1.3) mg/dL AST 22 (5-25) IU/L ALT 18 (12-36) U/L Alkaline Phosphatase 57 (56-112) IU/L Creatine Kinase 164 H (60-160) IU/L Troponin I (4.0-60.3) pg/mL Total Protein 6.0 (6.0-8.0) g/dL Albumin 3.3 (3.2-4.6) g/dL Globulin 2.7 g/dL Albumin/Globulin Ratio 1.2 Urine Color Yellow (YELLOW) Urine Appearance Slightly cloudy (CLEAR) Urine pH 7.0 H (5.0-6.5) Ur Specific [place] 1.010 (1.010-1.025) Urine Protein Negative (NEGATIVE) mg/dL Urine Glucose (UA) Normal (NORMAL) mg/dL Urine Ketones 15 H (NEGATIVE) mg/dL Urine Occult Blood Large H (NEGATIVE) Urine Nitrite Negative (NEGATIVE) Urine Bilirubin Negative (NEGATIVE) Urine Urobilinogen 4 H (NEGATIVE) mg/dL Ur Leukocyte Esterase Negative (NEGATIVE) Urine RBC 20-30 H (0-5) Urine WBC 0-5 (0-5) Ur Squamous Epith Cells Few H (NS,R,O) Urine Bacteria Many H (NS) SARS-CoV-2 RNA (CANDI) (NEGATIVE) 08/04/21 08/04/21 08/04/21 Range/Units 08:00 08:00 08:30 WBC (3.2-10.1) x10-3/uL RBC (3.90-5.90) x10(6)uL Hgb (12.9-17.7) g/dL Hct (38.3-50.1) % MCV (80.8-98.7) fL MCH (27.0-33.3) pg MCHC (28.7-35.3) g/dL RDW (12.4-15.0) % Plt Count (117-477) x10(3)uL MPV (6.7-11.0) fL Neut % (Auto) (40.3-71.8) % Lymph % (Auto) (15.8-45.3) % [place] % (Auto) (5.5-15.2) % Eos % (Auto) (0.1-6.8) % Baso % (Auto) (0.3-3.8) % Neut # (Auto) (1.7-6.9) x10-3/uL Lymph # (Auto) (0.5-4.5) x10-3/uL [place] # (Auto) (0.0-1.2) x10-3/uL Eos # (Auto) (0.0-0.6) x10-3/uL Baso # (Auto) (0.0-0.3) x10-3/uL Sodium (135-145) mmol/L Potassium (3.5-5.3) mmol/L Chloride (100-110) mmol/L Carbon Dioxide (21-32) mmol/L BUN (7-18) mg/dL Creatinine (0.70-1.30) mg/dL Est Cr Clr Drug Dosing Estimated GFR (MDRD) (>60) BUN/Creatinine Ratio (9-20) Glucose (80-116) mg/dL Calcium (8.6-10.2) mg/dL Magnesium 1.7 L (1.8-2.5) mg/dL Total Bilirubin (0.1-1.3) mg/dL AST (5-25) IU/L ALT (12-36) U/L Alkaline Phosphatase (56-112) IU/L Creatine Kinase (60-160) IU/L Troponin I 60.0 (4.0-60.3) pg/mL Total Protein (6.0-8.0) g/dL Albumin (3.2-4.6) g/dL Globulin g/dL Albumin/Globulin Ratio Urine Color (YELLOW) Urine Appearance (CLEAR) Urine pH (5.0-6.5) Ur Specific [place] (1.010-1.025) Urine Protein (NEGATIVE) mg/dL Urine Glucose (UA) (NORMAL) mg/dL Urine Ketones (NEGATIVE) mg/dL Urine Occult Blood (NEGATIVE) Urine Nitrite (NEGATIVE) Urine Bilirubin (NEGATIVE) Urine Urobilinogen (NEGATIVE) mg/dL Ur Leukocyte Esterase (NEGATIVE) Urine RBC (0-5) Urine WBC (0-5) Ur Squamous Epith Cells (NS,R,O) Urine Bacteria (NS) SARS-CoV-2 RNA (CANDI) Negative (NEGATIVE) 08/05/21 08/05/21 Range/Units 06:35 06:35 WBC 9.2 (3.2-10.1) x10-3/uL RBC 3.76 L (3.90-5.90) x10(6)uL Hgb 12.6 L (12.9-17.7) g/dL Hct 36.0 L (38.3-50.1) % MCV 95.9 (80.8-98.7) fL MCH 33.6 H (27.0-33.3) pg MCHC 35.0 (28.7-35.3) g/dL RDW 16.8 H (12.4-15.0) % Plt Count 190 (117-477) x10(3)uL MPV 9.1 (6.7-11.0) fL Neut % (Auto) 83.9 H (40.3-71.8) % Lymph % (Auto) 6.9 L (15.8-45.3) % [place] % (Auto) 8.4 (5.5-15.2) % Eos % (Auto) 0.5 (0.1-6.8) % Baso % (Auto) 0.3 (0.3-3.8) % Neut # (Auto) 7.7 H (1.7-6.9) x10-3/uL Lymph # (Auto) 0.6 (0.5-4.5) x10-3/uL [place] # (Auto) 0.8 (0.0-1.2) x10-3/uL Eos # (Auto) 0.0 (0.0-0.6) x10-3/uL Baso # (Auto) 0.0 (0.0-0.3) x10-3/uL Sodium 128 L D (135-145) mmol/L Potassium 2.7 L* (3.5-5.3) mmol/L Chloride 92 L D (100-110) mmol/L Carbon Dioxide 28 (21-32) mmol/L BUN 9 (7-18) mg/dL Creatinine 0.7 (0.70-1.30) mg/dL Est Cr Clr Drug Dosing 80.92 Estimated GFR (MDRD) > 60 (>60) BUN/Creatinine Ratio 12.9 (9-20) Glucose 92 (80-116) mg/dL Calcium 8.2 L (8.6-10.2) mg/dL Magnesium (1.8-2.5) mg/dL Total Bilirubin (0.1-1.3) mg/dL AST (5-25) IU/L ALT (12-36) U/L Alkaline Phosphatase (56-112) IU/L Creatine Kinase (60-160) IU/L Troponin I (4.0-60.3) pg/mL Total Protein (6.0-8.0) g/dL Albumin (3.2-4.6) g/dL Globulin g/dL Albumin/Globulin Ratio Urine Color (YELLOW) Urine Appearance (CLEAR) Urine pH (5.0-6.5) Ur Specific [place] (1.010-1.025) Urine Protein (NEGATIVE) mg/dL Urine Glucose (UA) (NORMAL) mg/dL Urine Ketones (NEGATIVE) mg/dL Urine Occult Blood (NEGATIVE) Urine Nitrite (NEGATIVE) Urine Bilirubin (NEGATIVE) Urine Urobilinogen (NEGATIVE) mg/dL Ur Leukocyte Esterase (NEGATIVE) Urine RBC (0-5) Urine WBC (0-5) Ur Squamous Epith Cells (NS,R,O) Urine Bacteria (NS) SARS-CoV-2 RNA (CANDI) (NEGATIVE) Geoffrey Results Last 24 Hours: Microbiology 08/04/21 07:30 Urine Culture - Preliminary Urine, Clean Catch Gram Negative Rods Med Orders - Current: Current Medications Hydrocodone Bitart/Acetaminophen (Acetaminophen/Hydrocodone 325-5 Mg Tab) 1 tab PO Q4H PRN PRN Reason: Pain (severe 7-10) Last Admin: 08/04/21 19:17 Dose: 1 tab Documented by: Enoxaparin Sodium (Enoxaparin 40 Mg/0.4 Ml Syringe) 40 mg SUBCUT BEDTIME MAKENZIE Last Admin: 08/04/21 20:24 Dose: 40 mg Documented by: Magnesium Sulfate (Magnesium Sulfate In Water 2 Gm/50 Ml) 50 mls @ 50 mls/hr IV NOW ONE Stop: 08/05/21 08:29 Labetalol HCl (Labetalol 20 Mg/4 Ml Syringe) 10 mg IVPUSH Q6H PRN; Protocol PRN Reason: Hypertension Loperamide HCl (Loperamide 2 Mg Cap) 2 mg PO Q4H PRN PRN Reason: Diarrhea Last Admin: 08/04/21 19:18 Dose: 2 mg Documented by: Nystatin (Nystatin Crm 15 Gm Tube) 0 gm TOP BID MAKENZIE Last Admin: 08/04/21 21:33 Dose: 1 applic Documented by: Potassium Chloride (Potassium Chloride 20 Meq Tab.Er) 40 meq PO BID [facility] Sodium Chloride (Sodium Chloride 0.9% 10 Ml Syringe) 10 ml FLUSH ASDIRECTED PRN PRN Reason: Keep Vein Open Last Admin: 08/04/21 07:50 Dose: 10 ml Documented by: Sodium Chloride (Sodium Chloride 1 Gm Tab) 1 gm PO BID [facility] Last Admin: 08/04/21 22:37 Dose: 1 gm Documented by: Discontinued Medications Diatrizoate Meglum/Diatrizoate Sod (Diatrizoate Meglumine/Diatrizoate Sodium 37% 30 Ml Bottle) 30 ml PO . DIRECTED ONE Stop: 08/04/21 12:01 Last Admin: 08/04/21 13:32 Dose: 30 ml Documented by: Sodium Chloride (Normal Saline) 1,000 mls @ 500 mls/hr IV ASDIRECTED MAKENZIE Last Admin: 08/04/21 08:30 Dose: 500 mls/hr Documented by: Magnesium Sulfate 2 gm/ (Dextrose/Water) 104 mls @ 100 mls/hr IV ONETIME ONE Stop: 08/05/21 08:26 Magnesium Sulfate (Magnesium Sulfate In Water 2 Gm/50 Ml) 100 mls @ 100 mls/hr IV NOW ONE Stop: 08/05/21 08:29 Iopamidol (Iopamidol 755 Mg/Ml 75 Ml Bottle) 75 ml IV ONETIME ONE Stop: 08/04/21 12:01 Last Admin: 08/04/21 13:31 Dose: 75 ml Documented by: Comments:: Patient was sleeping left lateral when I entered the room, he awoke easily and was alert, attentive, pleasant, asked to have the windows/blinds open to light. He does seem to be a little bit confused but answers questions appropriately - Exam Quality Assessment: Supplemental Oxygen, DVT Prophylaxis Urinary Catheter Total Time: 0Days 10Hours General: Alert, Oriented, Cooperative, No Acute Distress Lungs: Normal Respiratory Effort, Rales Cardiovascular: Regular Rate, Bradycardia, Other (Heart sounds are distant and very difficult to auscultate) GI/Abdominal Exam: Normal Bowel Sounds, Soft, Non-Tender (Male) Exam: Other (Blood-tinged urine in the Arteaga catheter) Back Exam: Normal Inspection. No: CVA Tenderness (R), CVA Tenderness (L) Extremities: Pedal Edema, Other (Edema improved from yesterday) Peripheral Pulses: 2+: Radial (L), Radial (R) Skin: Ecchymosis Wound/Incisions: Other (Patient has some superficial skin tears) Neurological: No New Focal Deficit Psy/Mental Status: Alert - Patient Data Lab Results Last 24 hrs: Laboratory Results - last 24 hr 08/04/21 08/04/21 08/04/21 Range/Units 07:30 08:00 08:00 WBC 9.7 (3.2-10.1) x10-3/uL RBC 4.05 (3.90-5.90) x10(6)uL Hgb 13.4 (12.9-17.7) g/dL Hct 38.9 (38.3-50.1) % MCV 96.0 (80.8-98.7) fL MCH 33.0 (27.0-33.3) pg MCHC 34.3 (28.7-35.3) g/dL RDW 17.0 H (12.4-15.0) % Plt Count 215 (117-477) x10(3)uL MPV 8.7 (6.7-11.0) fL Neut % (Auto) 85.3 H (40.3-71.8) % Lymph % (Auto) 3.9 L (15.8-45.3) % [place] % (Auto) 10.5 (5.5-15.2) % Eos % (Auto) 0.1 (0.1-6.8) % Baso % (Auto) 0.2 L (0.3-3.8) % Neut # (Auto) 8.3 H (1.7-6.9) x10-3/uL Lymph # (Auto) 0.4 L (0.5-4.5) x10-3/uL [place] # (Auto) 1.0 (0.0-1.2) x10-3/uL Eos # (Auto) 0.0 (0.0-0.6) x10-3/uL Baso # (Auto) 0.0 (0.0-0.3) x10-3/uL Sodium 118 L* (135-145) mmol/L Potassium 3.2 L (3.5-5.3) mmol/L Chloride 83 L* (100-110) mmol/L Carbon Dioxide 26 (21-32) mmol/L BUN 12 (7-18) mg/dL Creatinine 0.7 (0.70-1.30) mg/dL Est Cr Clr Drug Dosing TNP Estimated GFR (MDRD) > 60 (>60) BUN/Creatinine Ratio 17.1 (9-20) Glucose 101 (80-116) mg/dL Calcium 8.4 L (8.6-10.2) mg/dL Magnesium (1.8-2.5) mg/dL Total Bilirubin 2.1 H (0.1-1.3) mg/dL AST 22 (5-25) IU/L ALT 18 (12-36) U/L Alkaline Phosphatase 57 (56-112) IU/L Creatine Kinase 164 H (60-160) IU/L Troponin I (4.0-60.3) pg/mL Total Protein 6.0 (6.0-8.0) g/dL Albumin 3.3 (3.2-4.6) g/dL Globulin 2.7 g/dL Albumin/Globulin Ratio 1.2 Urine Color Yellow (YELLOW) Urine Appearance Slightly cloudy (CLEAR) Urine pH 7.0 H (5.0-6.5) Ur Specific [place] 1.010 (1.010-1.025) Urine Protein Negative (NEGATIVE) mg/dL Urine Glucose (UA) Normal (NORMAL) mg/dL Urine Ketones 15 H (NEGATIVE) mg/dL Urine Occult Blood Large H (NEGATIVE) Urine Nitrite Negative (NEGATIVE) Urine Bilirubin Negative (NEGATIVE) Urine Urobilinogen 4 H (NEGATIVE) mg/dL Ur Leukocyte Esterase Negative (NEGATIVE) Urine RBC 20-30 H (0-5) Urine WBC 0-5 (0-5) Ur Squamous Epith Cells Few H (NS,R,O) Urine Bacteria Many H (NS) SARS-CoV-2 RNA (CANDI) (NEGATIVE) 08/04/21 08/04/21 08/04/21 Range/Units 08:00 08:00 08:30 WBC (3.2-10.1) x10-3/uL RBC (3.90-5.90) x10(6)uL Hgb (12.9-17.7) g/dL Hct (38.3-50.1) % MCV (80.8-98.7) fL MCH (27.0-33.3) pg MCHC (28.7-35.3) g/dL RDW (12.4-15.0) % Plt Count (117-477) x10(3)uL MPV (6.7-11.0) fL Neut % (Auto) (40.3-71.8) % Lymph % (Auto) (15.8-45.3) % [place] % (Auto) (5.5-15.2) % Eos % (Auto) (0.1-6.8) % Baso % (Auto) (0.3-3.8) % Neut # (Auto) (1.7-6.9) x10-3/uL Lymph # (Auto) (0.5-4.5) x10-3/uL [place] # (Auto) (0.0-1.2) x10-3/uL Eos # (Auto) (0.0-0.6) x10-3/uL Baso # (Auto) (0.0-0.3) x10-3/uL Sodium (135-145) mmol/L Potassium (3.5-5.3) mmol/L Chloride (100-110) mmol/L Carbon Dioxide (21-32) mmol/L BUN (7-18) mg/dL Creatinine (0.70-1.30) mg/dL Est Cr Clr Drug Dosing Estimated GFR (MDRD) (>60) BUN/Creatinine Ratio (9-20) Glucose (80-116) mg/dL Calcium (8.6-10.2) mg/dL Magnesium 1.7 L (1.8-2.5) mg/dL Total Bilirubin (0.1-1.3) mg/dL AST (5-25) IU/L ALT (12-36) U/L Alkaline Phosphatase (56-112) IU/L Creatine Kinase (60-160) IU/L Troponin I 60.0 (4.0-60.3) pg/mL Total Protein (6.0-8.0) g/dL Albumin (3.2-4.6) g/dL Globulin g/dL Albumin/Globulin Ratio Urine Color (YELLOW) Urine Appearance (CLEAR) Urine pH (5.0-6.5) Ur Specific [place] (1.010-1.025) Urine Protein (NEGATIVE) mg/dL Urine Glucose (UA) (NORMAL) mg/dL Urine Ketones (NEGATIVE) mg/dL Urine Occult Blood (NEGATIVE) Urine Nitrite (NEGATIVE) Urine Bilirubin (NEGATIVE) Urine Urobilinogen (NEGATIVE) mg/dL Ur Leukocyte Esterase (NEGATIVE) Urine RBC (0-5) Urine WBC (0-5) Ur Squamous Epith Cells (NS,R,O) Urine Bacteria (NS) SARS-CoV-2 RNA (CANDI) Negative (NEGATIVE) 08/05/21 08/05/21 Range/Units 06:35 06:35 WBC 9.2 (3.2-10.1) x10-3/uL RBC 3.76 L (3.90-5.90) x10(6)uL Hgb 12.6 L (12.9-17.7) g/dL Hct 36.0 L (38.3-50.1) % MCV 95.9 (80.8-98.7) fL MCH 33.6 H (27.0-33.3) pg MCHC 35.0 (28.7-35.3) g/dL RDW 16.8 H (12.4-15.0) % Plt Count 190 (117-477) x10(3)uL MPV 9.1 (6.7-11.0) fL Neut % (Auto) 83.9 H (40.3-71.8) % Lymph % (Auto) 6.9 L (15.8-45.3) % [place] % (Auto) 8.4 (5.5-15.2) % Eos % (Auto) 0.5 (0.1-6.8) % Baso % (Auto) 0.3 (0.3-3.8) % Neut # (Auto) 7.7 H (1.7-6.9) x10-3/uL Lymph # (Auto) 0.6 (0.5-4.5) x10-3/uL [place] # (Auto) 0.8 (0.0-1.2) x10-3/uL Eos # (Auto) 0.0 (0.0-0.6) x10-3/uL Baso # (Auto) 0.0 (0.0-0.3) x10-3/uL Sodium 128 L D (135-145) mmol/L Potassium 2.7 L* (3.5-5.3) mmol/L Chloride 92 L D (100-110) mmol/L Carbon Dioxide 28 (21-32) mmol/L BUN 9 (7-18) mg/dL Creatinine 0.7 (0.70-1.30) mg/dL Est Cr Clr Drug Dosing 80.92 Estimated GFR (MDRD) > 60 (>60) BUN/Creatinine Ratio 12.9 (9-20) Glucose 92 (80-116) mg/dL Calcium 8.2 L (8.6-10.2) mg/dL Magnesium (1.8-2.5) mg/dL Total Bilirubin (0.1-1.3) mg/dL AST (5-25) IU/L ALT (12-36) U/L Alkaline Phosphatase (56-112) IU/L Creatine Kinase (60-160) IU/L Troponin I (4.0-60.3) pg/mL Total Protein (6.0-8.0) g/dL Albumin (3.2-4.6) g/dL Globulin g/dL Albumin/Globulin Ratio Urine Color (YELLOW) Urine Appearance (CLEAR) Urine pH (5.0-6.5) Ur Specific [place] (1.010-1.025) Urine Protein (NEGATIVE) mg/dL Urine Glucose (UA) (NORMAL) mg/dL Urine Ketones (NEGATIVE) mg/dL Urine Occult Blood (NEGATIVE) Urine Nitrite (NEGATIVE) Urine Bilirubin (NEGATIVE) Urine Urobilinogen (NEGATIVE) mg/dL Ur Leukocyte Esterase (NEGATIVE) Urine RBC (0-5) Urine WBC (0-5) Ur Squamous Epith Cells (NS,R,O) Urine Bacteria (NS) SARS-CoV-2 RNA (CANDI) (NEGATIVE) Result Diagrams: 08/05/21 06:35 08/05/21 06:35 Geoffrey Results Last 24 hrs: Microbiology 08/04/21 07:30 Urine Culture - Preliminary Urine, Clean Catch Gram Negative Rods Sepsis Event Note - Evaluation Sepsis Screening Result: No Definite Risk - Focused Exam Vital Signs: Vital Signs Temp Pulse Resp BP Pulse Ox 08/05/21 05:55 36.4 C 54 L 16 114/47 L 97 08/05/21 00:35 62 16 127/62 96 - Problem List & Annotations (1) Hyponatremia SNOMED Code(s): 59311374 Code(s): E87.1 - HYPO-OSMOLALITY AND HYPONATREMIA Status: Acute Current Visit: Yes (2) Hypertension SNOMED Code(s): 17313129 Code(s): I10 - ESSENTIAL (PRIMARY) HYPERTENSION Status: Chronic Current Visit: Yes (3) Contusion, hip SNOMED Code(s): 45515122 Code(s): S70.00XA - CONTUSION OF UNSPECIFIED HIP, INITIAL ENCOUNTER Status: Acute Current Visit: Yes (4) Cutaneous candidiasis SNOMED Code(s): 94093966 Code(s): B37.2 - CANDIDIASIS OF SKIN AND NAIL Status: Acute Current Visit: Yes (5) Frequent falls SNOMED Code(s): 842512014 Code(s): R29.6 - REPEATED FALLS Status: Acute Current Visit: Yes (6) Head injury SNOMED Code(s): 37757999 Code(s): S09.90XA - UNSPECIFIED INJURY OF HEAD, INITIAL ENCOUNTER Status: Acute Current Visit: Yes (7) Skin tear SNOMED Code(s): 119982245 Code(s): MEM4891 - Status: Acute Current Visit: Yes (8) Hypochloremia SNOMED Code(s): 83279635 Code(s): E87.8 - OTH DISORDERS OF ELECTROLYTE AND FLUID BALANCE, NEC Status: Acute Current Visit: Yes (9) Hypokalemia SNOMED Code(s): 16502929 Code(s): E87.6 - HYPOKALEMIA Status: Acute Current Visit: Yes (10) Bilateral lower extremity edema SNOMED Code(s): 933315271, 64942949, 555341292 Code(s): R60.0 - LOCALIZED EDEMA Status: Acute Current Visit: Yes - Problem List Review Problem List Initiated/Reviewed/Updated: Yes - My Orders Last 24 Hours: My Active Orders 08/04/21 07:30 CULTURE URINE [RM] Routine 08/04/21 Lunch Heart Healthy Diet [DIET] 08/04/21 10:31 Patient Status [ADT] Routine Pulse Oximetry [RC] .PRN Vital Signs [RC] 00,04,08,12,16,20 DVT/VTE Prophylaxis Reflex [OM.PC] Per Unit Routine Resuscitation Status Routine 08/04/21 10:32 Antiembolic Devices [RC] .PRN 08/04/21 10:57 Labetalol [Normodyne] 10 mg IVPUSH Q6H PRN 08/04/21 11:00 Sodium Chloride 1 gm PO BID 08/04/21 11:18 OT Evaluation and Treatment [CONS] Routine PT Evaluation and Treatment [CONS] Routine Anti-Embolism Stockings AK [Antiembolic Hose] [OM.PC] Routine 08/04/21 13:00 Nystatin [Nystatin Crm] 0 gm TOP BID 08/04/21 14:15 Insert Arteaga Catheter [Insert Urinary Catheter] [OM.PC] Q24H Urinary Catheter Assessment [RC] 00,08,16 08/04/21 15:41 Consult to Case Management/Quantitative Manager [CONS] Routine 08/04/21 18:36 Loperamide [Imodium] 2 mg PO Q4H PRN 08/04/21 18:38 Acetaminophen/HYDROcodone [[place] 325-5 MG] 1 tab PO Q4H PRN 08/04/21 21:00 Enoxaparin [Lovenox] 40 mg SUBCUT BEDTIME 08/05/21 07:37 Magnesium Sulfate/Water [Magnesium Sulfate in Water 2 GM/50 ML] 50 ml IV NOW 08/05/21 09:00 Potassium Chloride [Klor-Con M20] 40 meq PO BID 08/05/21 Lunch Fluid Restriction [DIET] 08/05/21 14:15 Insert Arteaga Catheter [Insert Urinary Catheter] [OM.PC] Q24H 08/05/21 18:37 Echo Comp wo Cont [US] Routine - Plan Plan:: 1. Admit to inpatient. CT abdomen and pelvis with contrast -markedly distended bladder with hydroureter bilateral, likely bladder outflow obstruction with no obvious mass/tumor identified. Urinary catheter inserted and patient had output of greater than 2 L over the course of the evening. Further recommendations based on urology consult. PT/OT eval and treat 2. Hyponatremia: Sodium improved from 118 in the emergency room yesterday to 128 today. Increase free water restriction from 500 mL to 1000 mL today. Patient has enhanced hypokalemia at 2.7 this morning and labs showed mild hypomagnesemia at 1.7 yesterday. Patient will be given 2 g magnesium sulfate IV and 40 mg potassium chloride p.o. twice daily. Continue to trend electrolytes. 3. Hypertension: Hold patient's amlodipine secondary to bilateral lower extremity edema and hold hydrochlorothiazide secondary to electrolyte abnormalities as above. Patient will be given labetalol 10 mg every 6 hours as needed for systolic blood pressure greater than 160 or diastolic blood pressure greater than 100. Labetalol will be held if pulse rate is less than 60. 4. Bilateral lower extremity edema: Patient will not be given Lasix at this time secondary to electrolyte abnormalities as above, patient will be given compression stockings -significant improvement from yesterday 4. Patient does not have an obvious urinary tract infection but we will culture the urine 5. DVT prophylaxis: enoxaparin 40 mg subcu nightly 6. Disposition: he will likely need acute rehabilitation and/or group home/assisted living placement. Recommendations based on patient improvement, urology consult, and results of echocardiogram.
[2021-08-05] MEDS ORDERED: cefTRIAXone 1 GM in Sodium Chloride 0.9% 50 ML IV SCH (08:00)
[2021-08-05] MEDS ORDERED: cefTRIAXone 1 GM Vial IVPUSH SCH (08:15)
[2021-08-05] MEDS: Sodium Chloride 0.9% 10 ML Syringe FLUSH PRN ×2 (09:07→10:08)
[2021-08-05] MEDS: Sodium Chloride 1 GM Tab PO SCH ×2 (09:25→20:52)
[2021-08-05] MEDS: Potassium Chloride 20 MEQ Tab.ER PO SCH ×2 (09:25→20:52)
[2021-08-05] MEDS: Nystatin Crm 15 GM Tube TOP SCH ×2 (09:25→20:52)
[2021-08-05] MEDS: Amoxicillin/Clavulanate K 875-125 MG Tab PO SCH (18:35)
[2021-08-05] MEDS: Enoxaparin 40 MG/0.4 ML Syringe SUBCUT SCH (20:53)
[2021-08-05] MEDS: Acetaminophen/HYDROcodone 325-5 MG Tab PO PRN (21:06)
[2021-08-06] MEDS: Amoxicillin/Clavulanate K 875-125 MG Tab PO SCH ×2 (06:03→18:04)
--- NOTE | 2021-08-06 08:51 | PCM.PN ---
- General Info Date of Service: 08/06/21 Admission Dx/Problem (Free Text): Admission Diagnosis/Problem Admission Diagnosis/Problem Weakness Subjective Update: Patient states he continues to feel better and wanted me to come back after he was done with breakfast Functional Status: Reports: Pain Controlled, Tolerating Diet, Ambulating, Urinat ing, Other (Urinating with assistance of Arteaga catheter) - Review of Systems General: Reports: Weakness HEENT: Reports: No Symptoms Pulmonary: Reports: No Symptoms Cardiovascular: Reports: No Symptoms Gastrointestinal: Reports: No Symptoms Genitourinary: Reports: No Symptoms Musculoskeletal: Reports: No Symptoms Skin: Reports: No Symptoms Neurological: Reports: No Symptoms Psychiatric: Reports: No Symptoms - Patient Data Vitals - Most Recent: Last Vital Signs Temp 36.5 C 08/06/21 06:00 Pulse 78 08/06/21 06:00 Resp 16 08/06/21 06:00 BP 140/64 08/06/21 06:00 Pulse Ox 100 08/06/21 06:00 Weight - Most Recent: 72.83 kg I&O - Last 24 Hours: Intake & Output 08/05/21 08/06/21 08/06/21 22:59 06:59 14:59 Intake Total 100 10 Output Total 1300 400 Balance -1200 -390 Lab Results Last 24 Hours: Laboratory Results - last 24 hr 08/06/21 08/06/21 Range/Units 06:30 06:30 WBC 7.9 (3.2-10.1) x10-3/uL RBC 3.63 L (3.90-5.90) x10(6)uL Hgb 12.2 L (12.9-17.7) g/dL Hct 35.4 L (38.3-50.1) % MCV 97.6 (80.8-98.7) fL MCH 33.7 H (27.0-33.3) pg MCHC 34.6 (28.7-35.3) g/dL RDW 17.1 H (12.4-15.0) % Plt Count 194 (117-477) x10(3)uL MPV 9.3 (6.7-11.0) fL Neut % (Auto) 77.5 H (40.3-71.8) % Lymph % (Auto) 10.2 L (15.8-45.3) % Mcdonough % (Auto) 10.8 (5.5-15.2) % Eos % (Auto) 0.8 (0.1-6.8) % Baso % (Auto) 0.7 (0.3-3.8) % Neut # (Auto) 6.1 (1.7-6.9) x10-3/uL Lymph # (Auto) 0.8 (0.5-4.5) x10-3/uL Mcdonough # (Auto) 0.9 (0.0-1.2) x10-3/uL Eos # (Auto) 0.1 (0.0-0.6) x10-3/uL Baso # (Auto) 0.1 (0.0-0.3) x10-3/uL Sodium 135 (135-145) mmol/L Potassium 4.1 D (3.5-5.3) mmol/L Chloride 99 L D (100-110) mmol/L Carbon Dioxide 29 (21-32) mmol/L BUN 10 (7-18) mg/dL Creatinine 0.6 L (0.70-1.30) mg/dL Est Cr Clr Drug Dosing 94.41 mL/min Estimated GFR (MDRD) > 60 (>60) BUN/Creatinine Ratio 16.7 (9-20) Glucose 99 (80-116) mg/dL Calcium 8.4 L (8.6-10.2) mg/dL Geoffrey Results Last 24 Hours: Microbiology 08/04/21 07:30 Urine Culture - Preliminary Urine, Clean Catch Gram Negative Rods Med Orders - Current: Current Medications Hydrocodone Bitart/Acetaminophen (Acetaminophen/Hydrocodone 325-5 Mg Tab) 1 tab PO Q4H PRN PRN Reason: Pain (severe 7-10) Last Admin: 08/05/21 21:06 Dose: 1 tab Documented by: Amoxicillin/Clavulanate Potassium (Amoxicillin/Clavulanate K 875-125 Mg Tab) 1 tab PO Q12H MAKENZIE Stop: 08/08/21 23:59 Last Admin: 08/06/21 06:03 Dose: 1 tab Documented by: Enoxaparin Sodium (Enoxaparin 40 Mg/0.4 Ml Syringe) 40 mg SUBCUT BEDTIME MAKENZIE Last Admin: 08/05/21 20:53 Dose: 40 mg Documented by: Labetalol HCl (Labetalol 20 Mg/4 Ml Syringe) 10 mg IVPUSH Q6H PRN; Protocol PRN Reason: Hypertension Loperamide HCl (Loperamide 2 Mg Cap) 2 mg PO Q4H PRN PRN Reason: Diarrhea Last Admin: 08/04/21 19:18 Dose: 2 mg Documented by: Nystatin (Nystatin Crm 15 Gm Tube) 0 gm TOP BID [facility] Last Admin: 08/05/21 20:52 Dose: 1 applic Documented by: Potassium Chloride (Potassium Chloride 20 Meq Tab.Er) 40 meq PO BID [facility] Last Admin: 08/05/21 20:52 Dose: 40 meq Documented by: Sodium Chloride (Sodium Chloride 0.9% 10 Ml Syringe) 10 ml FLUSH ASDIRECTED PRN PRN Reason: Keep Vein Open Last Admin: 08/05/21 10:08 Dose: 10 ml Documented by: Sodium Chloride (Sodium Chloride 1 Gm Tab) 1 gm PO BID [facility] Last Admin: 08/05/21 20:52 Dose: 1 gm Documented by: Discontinued Medications Ceftriaxone Sodium (Ceftriaxone 1 Gm Vial) 1 gm IVPUSH Q24H [facility] Last Admin: 08/05/21 09:01 Dose: 1 gm Documented by: Diatrizoate Meglum/Diatrizoate Sod (Diatrizoate Meglumine/Diatrizoate Sodium 37% 30 Ml Bottle) 30 ml PO . DIRECTED ONE Stop: 08/04/21 12:01 Last Admin: 08/04/21 13:32 Dose: 30 ml Documented by: Sodium Chloride (Normal Saline) 1,000 mls @ 500 mls/hr IV ASDIRECTED [facility] Last Admin: 08/04/21 08:30 Dose: 500 mls/hr Documented by: Magnesium Sulfate (Magnesium Sulfate In Water 2 Gm/50 Ml) 50 mls @ 50 mls/hr IV NOW ONE Stop: 08/05/21 08:29 Last Admin: 08/05/21 09:00 Dose: 50 mls/hr Documented by: Iopamidol (Iopamidol 755 Mg/Ml 75 Ml Bottle) 75 ml IV ONETIME ONE Stop: 08/04/21 12:01 Last Admin: 08/04/21 13:31 Dose: 75 ml Documented by: Comments:: Patient was sitting on the side of the bed without assistance preparing to eat breakfast when I entered the room - Exam Quality Assessment: Supplemental Oxygen, DVT Prophylaxis Urinary Catheter Total Time: 1Days 10Hours General: Alert, Oriented, Cooperative, No Acute Distress HEENT: EOMI Neck: Supple Lungs: Crackles Cardiovascular: Regular Rate, Other (Heart sounds are distant and difficult to auscultate) GI/Abdominal Exam: Normal Bowel Sounds, Soft, Non-Tender Back Exam: Normal Inspection. No: CVA Tenderness (R), CVA Tenderness (L) Extremities: Pedal Edema Peripheral Pulses: 2+: Radial (L), Radial (R) Skin: Warm, Dry Neurological: No New Focal Deficit Psy/Mental Status: Alert, Normal Affect, Normal Mood - Patient Data Lab Results Last 24 hrs: Laboratory Results - last 24 hr 08/06/21 08/06/21 Range/Units 06:30 06:30 WBC 7.9 (3.2-10.1) x10-3/uL RBC 3.63 L (3.90-5.90) x10(6)uL Hgb 12.2 L (12.9-17.7) g/dL Hct 35.4 L (38.3-50.1) % MCV 97.6 (80.8-98.7) fL MCH 33.7 H (27.0-33.3) pg MCHC 34.6 (28.7-35.3) g/dL RDW 17.1 H (12.4-15.0) % Plt Count 194 (117-477) x10(3)uL MPV 9.3 (6.7-11.0) fL Neut % (Auto) 77.5 H (40.3-71.8) % Lymph % (Auto) 10.2 L (15.8-45.3) % Mcdonough % (Auto) 10.8 (5.5-15.2) % Eos % (Auto) 0.8 (0.1-6.8) % Baso % (Auto) 0.7 (0.3-3.8) % Neut # (Auto) 6.1 (1.7-6.9) x10-3/uL Lymph # (Auto) 0.8 (0.5-4.5) x10-3/uL Mcdonough # (Auto) 0.9 (0.0-1.2) x10-3/uL Eos # (Auto) 0.1 (0.0-0.6) x10-3/uL Baso # (Auto) 0.1 (0.0-0.3) x10-3/uL Sodium 135 (135-145) mmol/L Potassium 4.1 D (3.5-5.3) mmol/L Chloride 99 L D (100-110) mmol/L Carbon Dioxide 29 (21-32) mmol/L BUN 10 (7-18) mg/dL Creatinine 0.6 L (0.70-1.30) mg/dL Est Cr Clr Drug Dosing 94.41 mL/min Estimated GFR (MDRD) > 60 (>60) BUN/Creatinine Ratio 16.7 (9-20) Glucose 99 (80-116) mg/dL Calcium 8.4 L (8.6-10.2) mg/dL Result Diagrams: 08/06/21 06:30 08/06/21 06:30 Geoffrey Results Last 24 hrs: Microbiology 08/04/21 07:30 Urine Culture - Preliminary Urine, Clean Catch Gram Negative Rods Sepsis Event Note - Evaluation Sepsis Screening Result: No Definite Risk - Focused Exam Vital Signs: Vital Signs Temp Pulse Resp BP Pulse Ox 08/06/21 06:00 36.5 C 78 16 140/64 100 08/06/21 00:00 16 08/05/21 21:00 37.0 C 86 18 157/58 H 99 - Problem List & Annotations (1) Hyponatremia SNOMED Code(s): 55105506 Code(s): E87.1 - HYPO-OSMOLALITY AND HYPONATREMIA Status: Acute Current Visit: Yes (2) Hypertension SNOMED Code(s): 80984334 Code(s): I10 - ESSENTIAL (PRIMARY) HYPERTENSION Status: Chronic Current Visit: Yes (3) Contusion, hip SNOMED Code(s): 96445016 Code(s): S70.00XA - CONTUSION OF UNSPECIFIED HIP, INITIAL ENCOUNTER Status: Acute Current Visit: Yes (4) Cutaneous candidiasis SNOMED Code(s): 07606666 Code(s): B37.2 - CANDIDIASIS OF SKIN AND NAIL Status: Acute Current Visit: Yes (5) Frequent falls SNOMED Code(s): 524053420 Code(s): R29.6 - REPEATED FALLS Status: Acute Current Visit: Yes (6) Head injury SNOMED Code(s): 67585091 Code(s): S09.90XA - UNSPECIFIED INJURY OF HEAD, INITIAL ENCOUNTER Status: Acute Current Visit: Yes (7) Skin tear SNOMED Code(s): 976249605 Code(s): FIS2481 - Status: Acute Current Visit: Yes (8) Hypochloremia SNOMED Code(s): 40532161 Code(s): E87.8 - OTH DISORDERS OF ELECTROLYTE AND FLUID BALANCE, NEC Status: Acute Current Visit: Yes (9) Hypokalemia SNOMED Code(s): 85996108 Code(s): E87.6 - HYPOKALEMIA Status: Acute Current Visit: Yes (10) Bilateral lower extremity edema SNOMED Code(s): 576501829, 79793172, 791794031 Code(s): R60.0 - LOCALIZED EDEMA Status: Acute Current Visit: Yes - Problem List Review Problem List Initiated/Reviewed/Updated: Yes - My Orders Last 24 Hours: My Active Orders 08/05/21 09:00 Potassium Chloride [Klor-Con M20] 40 meq PO BID 08/05/21 Lunch Fluid Restriction [DIET] 08/05/21 14:15 Insert Arteaga Catheter [Insert Urinary Catheter] [OM.PC] Q24H 08/05/21 18:00 Amoxicillin/Clavulanate K [Augmentin 875 MG/125 MG] 1 tab PO Q12H 08/05/21 18:37 Echo Comp wo Cont [US] Routine 08/06/21 14:15 Insert Arteaga Catheter [Insert Urinary Catheter] [OM.PC] Q24H - Plan Plan:: 1. Admit to inpatient. CT abdomen and pelvis with contrast -markedly distended bladder with hydroureter bilateral, likely bladder outflow obstruction with no obvious mass/tumor identified. Urinary catheter inserted and patient had output of greater than 2 L. I spoke with urology on the phone and urology explained that the patient will need to leave the Arteaga catheter in until he can be seen as an outpatient by urology. 2. Hyponatremia, hypokalemia: Patient's electrolytes have normalized at this time. We will continue to trend electrolytes with BMP on 08/08/2021. 3. Hypertension: Patient's home blood pressure medication held and review of blood pressure shows that he has mildly elevated systolic pressure but within normal limits for age. Patient will be given labetalol 10 mg every 6 hours as needed for systolic blood pressure greater than 160 or diastolic blood pressure greater than 100. Labetalol will be held if pulse rate is less than 60. Patient should be evaluated for future needs regarding antihypertensive medications. 4. Bilateral lower extremity edema: Patient will not be given Lasix at this time secondary to electrolyte abnormalities as above, patient will be given compression stockings -lower extremity edema continues to improve likely secondary to improve renal function 4. Urinary tract infection: Urine culture grew gram-negative rods and patient was started on IV ceftriaxone and transferred to oral Augmentin after 2 IV doses of ceftriaxone 5. DVT prophylaxis: enoxaparin 40 mg subcu nightly 6. Disposition: he will likely need acute rehabilitation and/or care home/assisted living placement
[2021-08-06] MEDS: Potassium Chloride 20 MEQ Tab.ER PO SCH ×2 (09:25→20:29)
[2021-08-06] MEDS: Sodium Chloride 1 GM Tab PO SCH ×2 (09:25→20:29)
[2021-08-06] MEDS: Nystatin Crm 15 GM Tube TOP SCH ×2 (09:26→20:30)
[2021-08-06] MEDS: Enoxaparin 40 MG/0.4 ML Syringe SUBCUT SCH (20:29)
[2021-08-06] MEDS: Acetaminophen/HYDROcodone 325-5 MG Tab PO PRN (20:29)
[2021-08-07] MEDS: Acetaminophen/HYDROcodone 325-5 MG Tab PO PRN (01:30)
[2021-08-07] MEDS: Amoxicillin/Clavulanate K 875-125 MG Tab PO SCH ×2 (05:36→18:06)
[2021-08-07] MEDS: Potassium Chloride 20 MEQ Tab.ER PO SCH ×2 (09:19→21:14)
[2021-08-07] MEDS: Sodium Chloride 1 GM Tab PO SCH ×2 (09:19→21:16)
[2021-08-07] MEDS: Nystatin Crm 15 GM Tube TOP SCH ×2 (09:19→21:15)
--- NOTE | 2021-08-07 10:13 | PCM.PN ---
- General Info Date of Service: 08/07/21 Admission Dx/Problem (Free Text): Admission Diagnosis/Problem Admission Diagnosis/Problem Weakness Subjective Update: Patient states he continues to feel better, no acute complaints at this time Functional Status: Reports: Pain Controlled, Tolerating Diet, Ambulating - Review of Systems General: Reports: Weakness HEENT: Reports: No Symptoms Pulmonary: Reports: No Symptoms Cardiovascular: Reports: No Symptoms Gastrointestinal: Reports: No Symptoms Genitourinary: Reports: Retention, Other (Arteaga catheter) Musculoskeletal: Reports: No Symptoms Skin: Reports: Bruising Neurological: Reports: Confusion Psychiatric: Reports: Confusion - Patient Data Vitals - Most Recent: Last Vital Signs Temp 36.4 C 08/07/21 01:30 Pulse 72 08/07/21 01:30 Resp 18 08/07/21 01:30 BP 122/56 L 08/07/21 01:30 Pulse Ox 96 08/07/21 01:30 Weight - Most Recent: 72.83 kg I&O - Last 24 Hours: Intake & Output 08/06/21 08/07/21 08/07/21 22:59 06:59 14:59 Intake Total 20 100 Output Total 50 150 Balance -30 -50 Geoffrey Results Last 24 Hours: Microbiology 08/04/21 07:30 Urine Culture - Final Urine, Clean Catch Escherichia Coli Proteus Vulgaris Med Orders - Current: Current Medications Hydrocodone Bitart/Acetaminophen (Acetaminophen/Hydrocodone 325-5 Mg Tab) 1 tab PO Q4H PRN PRN Reason: Pain (severe 7-10) Last Admin: 08/07/21 01:30 Dose: 1 tab Documented by: Amoxicillin/Clavulanate Potassium (Amoxicillin/Clavulanate K 875-125 Mg Tab) 1 tab PO Q12H MAKENZIE Stop: 08/08/21 23:59 Last Admin: 08/07/21 05:36 Dose: 1 tab Documented by: Enoxaparin Sodium (Enoxaparin 40 Mg/0.4 Ml Syringe) 40 mg SUBCUT BEDTIME MAKENZIE Last Admin: 08/06/21 20:29 Dose: 40 mg Documented by: Labetalol HCl (Labetalol 20 Mg/4 Ml Syringe) 10 mg IVPUSH Q6H PRN; Protocol PRN Reason: Hypertension Loperamide HCl (Loperamide 2 Mg Cap) 2 mg PO Q4H PRN PRN Reason: Diarrhea Last Admin: 08/04/21 19:18 Dose: 2 mg Documented by: Nystatin (Nystatin Crm 15 Gm Tube) 0 gm TOP BID [facility] Last Admin: 08/07/21 09:19 Dose: 1 applic Documented by: Potassium Chloride (Potassium Chloride 20 Meq Tab.Er) 40 meq PO BID [facility] Last Admin: 08/07/21 09:19 Dose: 40 meq Documented by: Sodium Chloride (Sodium Chloride 0.9% 10 Ml Syringe) 10 ml FLUSH ASDIRECTED PRN PRN Reason: Keep Vein Open Last Admin: 08/05/21 10:08 Dose: 10 ml Documented by: Sodium Chloride (Sodium Chloride 1 Gm Tab) 1 gm PO BID [facility] Last Admin: 08/07/21 09:19 Dose: 1 gm Documented by: Discontinued Medications Ceftriaxone Sodium (Ceftriaxone 1 Gm Vial) 1 gm IVPUSH Q24H [facility] Last Admin: 08/05/21 09:01 Dose: 1 gm Documented by: Diatrizoate Meglum/Diatrizoate Sod (Diatrizoate Meglumine/Diatrizoate Sodium 37% 30 Ml Bottle) 30 ml PO . DIRECTED ONE Stop: 08/04/21 12:01 Last Admin: 08/04/21 13:32 Dose: 30 ml Documented by: Sodium Chloride (Normal Saline) 1,000 mls @ 500 mls/hr IV ASDIRECTED [facility] Last Admin: 08/04/21 08:30 Dose: 500 mls/hr Documented by: Magnesium Sulfate (Magnesium Sulfate In Water 2 Gm/50 Ml) 50 mls @ 50 mls/hr IV NOW ONE Stop: 08/05/21 08:29 Last Admin: 08/05/21 09:00 Dose: 50 mls/hr Documented by: Iopamidol (Iopamidol 755 Mg/Ml 75 Ml Bottle) 75 ml IV ONETIME ONE Stop: 08/04/21 12:01 Last Admin: 08/04/21 13:31 Dose: 75 ml Documented by: Comments:: Patient appears to be oriented to person only, he is awake, alert, interactive, smiling - Exam Quality Assessment: Supplemental Oxygen, DVT Prophylaxis Urinary Catheter Total Time: 2Days 9Hours General: Alert, Cooperative, No Acute Distress HEENT: EOMI Neck: Supple Lungs: Crackles Cardiovascular: Regular Rate, Regular Rhythm GI/Abdominal Exam: Normal Bowel Sounds, Non-Tender Back Exam: Normal Inspection. No: CVA Tenderness (R), CVA Tenderness (L) Extremities: Pedal Edema Peripheral Pulses: 2+: Radial (L), Radial (R) Skin: Ecchymosis Wound/Incisions: Other (Scattered small skin tears) Neurological: No New Focal Deficit Psy/Mental Status: Alert, Anxious - Patient Data Result Diagrams: 08/06/21 06:30 08/06/21 06:30 Geoffrey Results Last 24 hrs: Microbiology 08/04/21 07:30 Urine Culture - Final Urine, Clean Catch Escherichia Coli Proteus Vulgaris Sepsis Event Note - Evaluation Sepsis Screening Result: No Definite Risk - Focused Exam Vital Signs: Vital Signs Temp Pulse Resp BP Pulse Ox 08/07/21 01:30 36.4 C 72 18 122/56 L 96 - Problem List & Annotations (1) Hyponatremia SNOMED Code(s): 72410867 Code(s): E87.1 - HYPO-OSMOLALITY AND HYPONATREMIA Status: Acute Current Visit: Yes (2) Hypertension SNOMED Code(s): 97993284 Code(s): I10 - ESSENTIAL (PRIMARY) HYPERTENSION Status: Chronic Current Visit: Yes (3) Contusion, hip SNOMED Code(s): 13137272 Code(s): S70.00XA - CONTUSION OF UNSPECIFIED HIP, INITIAL ENCOUNTER Status: Acute Current Visit: Yes (4) Cutaneous candidiasis SNOMED Code(s): 61531234 Code(s): B37.2 - CANDIDIASIS OF SKIN AND NAIL Status: Acute Current Visit: Yes (5) Frequent falls SNOMED Code(s): 655729337 Code(s): R29.6 - REPEATED FALLS Status: Acute Current Visit: Yes (6) Head injury SNOMED Code(s): 79102078 Code(s): S09.90XA - UNSPECIFIED INJURY OF HEAD, INITIAL ENCOUNTER Status: Acute Current Visit: Yes (7) Skin tear SNOMED Code(s): 643227112 Code(s): BTT0346 - Status: Acute Current Visit: Yes (8) Hypochloremia SNOMED Code(s): 10875621 Code(s): E87.8 - OTH DISORDERS OF ELECTROLYTE AND FLUID BALANCE, NEC Status: Acute Current Visit: Yes (9) Hypokalemia SNOMED Code(s): 83995715 Code(s): E87.6 - HYPOKALEMIA Status: Acute Current Visit: Yes (10) Bilateral lower extremity edema SNOMED Code(s): 082701221, 63049518, 134340005 Code(s): R60.0 - LOCALIZED EDEMA Status: Acute Current Visit: Yes (11) Urinary retention SNOMED Code(s): 303164524 Code(s): R33.9 - RETENTION OF URINE, UNSPECIFIED Status: Acute Current Visit: Yes - Problem List Review Problem List Initiated/Reviewed/Updated: Yes - My Orders Last 24 Hours: My Active Orders 08/06/21 14:15 Insert Arteaga Catheter [Insert Urinary Catheter] [OM.PC] Q24H 08/07/21 14:15 Insert Arteaga Catheter [Insert Urinary Catheter] [OM.PC] Q24H 08/08/21 BASIC METABOLIC PANEL,BMP [CHEM] Routine CBC WITH AUTO DIFF [HEME] Routine - Plan Plan:: 1. Admit to inpatient. CT abdomen and pelvis with contrast -markedly distended bladder with hydroureter bilateral, likely bladder outflow obstruction with no obvious mass/tumor identified. Urinary catheter inserted and patient had output of greater than 2 L. Arteaga catheter will remain in place, see below. I spoke with urology on the phone and urology explained that the patient will need to leave the Arteaga catheter in until he can be seen as an outpatient by urology. Urinary retention thought to be due to large prostate at this time. 2. Hyponatremia, hypokalemia: Patient's electrolytes have normalized at this time. We will continue to trend electrolytes with BMP on 08/08/2021. Consider changing potassium supplement and stopping sodium chloride tablets at that time. 3. Hypertension: Patient's home blood pressure medication held and review of blood pressure shows that he has mildly elevated systolic pressure but within normal limits for age. Patient will be given labetalol 10 mg every 6 hours as n eeded for systolic blood pressure greater than 160 or diastolic blood pressure greater than 100. Labetalol will be held if pulse rate is less than 60. Patient should be evaluated for future needs regarding antihypertensive medications. 4. Bilateral lower extremity edema: Patient will not be given Lasix at this time secondary to electrolyte abnormalities as above, patient will be given compression stockings -lower extremity edema continues to improve likely secondary to improve renal function. 4. Urinary tract infection: Urine culture grew gram-negative rods, Escherichia coli and Proteus vulgaris. Continue oral Augmentin as directed. 5. DVT prophylaxis: enoxaparin 40 mg subcu nightly 6. Disposition: Administration is working on confirmation of acceptance at [facility] early next week. Patient will likely need senior care/swing bed if he is not accepted at [facility]
[2021-08-07] MEDS: Enoxaparin 40 MG/0.4 ML Syringe SUBCUT SCH (21:14)
[2021-08-08] MEDS: Amoxicillin/Clavulanate K 875-125 MG Tab PO SCH ×2 (05:18→17:11)
--- NOTE | 2021-08-08 09:21 | PCM.PN ---
- General Info Date of Service: 08/08/21 Subjective Update: I spoke with Amadou and the family members at the bedside. Amadou is doing better, has some leg weakness and pain that is chronic. He also has unit obstruction and has a cut in situ. Was admitted for frequent falls and weakness and severe hyponatremia. The labs have since normalized - Review of Systems General: Reports: No Symptoms HEENT: Reports: No Symptoms Pulmonary: Reports: No Symptoms Cardiovascular: Reports: No Symptoms Gastrointestinal: Reports: No Symptoms Genitourinary: Reports: No Symptoms Musculoskeletal: Reports: No Symptoms Skin: Reports: No Symptoms Neurological: Reports: No Symptoms Psychiatric: Reports: No Symptoms - Patient Data Vitals - Most Recent: Last Vital Signs Temp 97.6 F 08/08/21 07:47 Pulse 81 08/08/21 07:47 Resp 18 08/08/21 07:47 BP 176/80 H 08/08/21 07:47 Pulse Ox 98 08/08/21 07:47 Weight - Most Recent: 72.83 kg I&O - Last 24 Hours: Intake & Output 08/07/21 08/08/21 08/08/21 22:59 06:59 14:59 Output Total 350 600 Balance -350 -600 Lab Results Last 24 Hours: Laboratory Results - last 24 hr 08/08/21 08/08/21 Range/Units 06:20 06:20 WBC 5.9 (3.2-10.1) x10-3/uL RBC 3.53 L (3.90-5.90) x10(6)uL Hgb 11.8 L (12.9-17.7) g/dL Hct 35.0 L (38.3-50.1) % MCV 99.0 H (80.8-98.7) fL MCH 33.3 (27.0-33.3) pg MCHC 33.6 (28.7-35.3) g/dL RDW 17.2 H (12.4-15.0) % Plt Count 248 (117-477) x10(3)uL MPV 9.1 (6.7-11.0) fL Neut % (Auto) 78.4 H (40.3-71.8) % Lymph % (Auto) 9.3 L (15.8-45.3) % [place] % (Auto) 9.7 (5.5-15.2) % Eos % (Auto) 1.7 (0.1-6.8) % Baso % (Auto) 0.9 (0.3-3.8) % Neut # (Auto) 4.6 (1.7-6.9) x10-3/uL Lymph # (Auto) 0.6 (0.5-4.5) x10-3/uL [place] # (Auto) 0.6 (0.0-1.2) x10-3/uL Eos # (Auto) 0.1 (0.0-0.6) x10-3/uL Baso # (Auto) 0.1 (0.0-0.3) x10-3/uL Sodium 133 L (135-145) mmol/L Potassium 5.4 H D (3.5-5.3) mmol/L Chloride 101 (100-110) mmol/L Carbon Dioxide 26 (21-32) mmol/L BUN 10 (7-18) mg/dL Creatinine 0.7 (0.70-1.30) mg/dL Est Cr Clr Drug Dosing 80.92 mL/min Estimated GFR (MDRD) > 60 (>60) BUN/Creatinine Ratio 14.3 (9-20) Glucose 99 (80-116) mg/dL Calcium 8.2 L (8.6-10.2) mg/dL Geoffrey Results Last 24 Hours: Microbiology 08/04/21 07:30 Urine Culture - Final Urine, Clean Catch Escherichia Coli Proteus Vulgaris Med Orders - Current: Current Medications Hydrocodone Bitart/Acetaminophen (Acetaminophen/Hydrocodone 325-5 Mg Tab) 1 tab PO Q4H PRN PRN Reason: Pain (severe 7-10) Last Admin: 08/07/21 01:30 Dose: 1 tab Documented by: Amoxicillin/Clavulanate Potassium (Amoxicillin/Clavulanate K 875-125 Mg Tab) 1 tab PO Q12H [facility] Stop: 08/08/21 23:59 Last Admin: 08/08/21 05:18 Dose: 1 tab Documented by: Enoxaparin Sodium (Enoxaparin 40 Mg/0.4 Ml Syringe) 40 mg SUBCUT BEDTIME [facility] Last Admin: 08/07/21 21:14 Dose: 40 mg Documented by: Labetalol HCl (Labetalol 20 Mg/4 Ml Syringe) 10 mg IVPUSH Q6H PRN; Protocol PRN Reason: Hypertension Loperamide HCl (Loperamide 2 Mg Cap) 2 mg PO Q4H PRN PRN Reason: Diarrhea Last Admin: 08/04/21 19:18 Dose: 2 mg Documented by: Nystatin (Nystatin Crm 15 Gm Tube) 0 gm TOP BID [facility] Last Admin: 08/07/21 21:15 Dose: 1 applic Documented by: Potassium Chloride (Potassium Chloride 20 Meq Tab.Er) 40 meq PO BID [facility] Last Admin: 08/07/21 21:14 Dose: 40 meq Documented by: Sodium Chloride (Sodium Chloride 0.9% 10 Ml Syringe) 10 ml FLUSH ASDIRECTED PRN PRN Reason: Keep Vein Open Last Admin: 08/05/21 10:08 Dose: 10 ml Documented by: Sodium Chloride (Sodium Chloride 1 Gm Tab) 1 gm PO BID [facility] Last Admin: 08/07/21 21:16 Dose: 1 gm Documented by: Discontinued Medications Ceftriaxone Sodium (Ceftriaxone 1 Gm Vial) 1 gm IVPUSH Q24H [facility] Last Admin: 08/05/21 09:01 Dose: 1 gm Documented by: Diatrizoate Meglum/Diatrizoate Sod (Diatrizoate Meglumine/Diatrizoate Sodium 37% 30 Ml Bottle) 30 ml PO . DIRECTED ONE Stop: 08/04/21 12:01 Last Admin: 08/04/21 13:32 Dose: 30 ml Documented by: Sodium Chloride (Normal Saline) 1,000 mls @ 500 mls/hr IV ASDIRECTED [facility] Last Admin: 08/04/21 08:30 Dose: 500 mls/hr Documented by: Magnesium Sulfate (Magnesium Sulfate In Water 2 Gm/50 Ml) 50 mls @ 50 mls/hr IV NOW ONE Stop: 08/05/21 08:29 Last Admin: 08/05/21 09:00 Dose: 50 mls/hr Documented by: Iopamidol (Iopamidol 755 Mg/Ml 75 Ml Bottle) 75 ml IV ONETIME ONE Stop: 08/04/21 12:01 Last Admin: 08/04/21 13:31 Dose: 75 ml Documented by: - Exam Urinary Catheter Total Time: 3Days 9Hours General: Alert, Oriented HEENT: Pupils Equal, Pupils Reactive, EOMI, Mucous Membr. Moist/[place] Neck: Supple Lungs: Clear to Auscultation, Normal Respiratory Effort Cardiovascular: Regular Rate, Regular Rhythm GI/Abdominal Exam: Normal Bowel Sounds, Soft, Non-Tender, No Organomegaly, No Distention, No Abnormal Bruit, No Mass, Pelvis Stable (Male) Exam: No Hernia, Normal Inspection, Normal Prostate, Circumcised Back Exam: Normal Inspection, Full Range of Motion Extremities: Normal Inspection, Normal Range of Motion, Non-Tender, No Pedal Edema, Normal Capillary Refill Skin: Warm, Dry, Intact Wound/Incisions: Healing Well Neurological: No New Focal Deficit Psy/Mental Status: Alert, Normal Affect, Normal Mood - Patient Data Lab Results Last 24 hrs: Laboratory Results - last 24 hr 08/08/21 08/08/21 Range/Units 06:20 06:20 WBC 5.9 (3.2-10.1) x10-3/uL RBC 3.53 L (3.90-5.90) x10(6)uL Hgb 11.8 L (12.9-17.7) g/dL Hct 35.0 L (38.3-50.1) % MCV 99.0 H (80.8-98.7) fL MCH 33.3 (27.0-33.3) pg MCHC 33.6 (28.7-35.3) g/dL RDW 17.2 H (12.4-15.0) % Plt Count 248 (117-477) x10(3)uL MPV 9.1 (6.7-11.0) fL Neut % (Auto) 78.4 H (40.3-71.8) % Lymph % (Auto) 9.3 L (15.8-45.3) % [place] % (Auto) 9.7 (5.5-15.2) % Eos % (Auto) 1.7 (0.1-6.8) % Baso % (Auto) 0.9 (0.3-3.8) % Neut # (Auto) 4.6 (1.7-6.9) x10-3/uL Lymph # (Auto) 0.6 (0.5-4.5) x10-3/uL [place] # (Auto) 0.6 (0.0-1.2) x10-3/uL Eos # (Auto) 0.1 (0.0-0.6) x10-3/uL Baso # (Auto) 0.1 (0.0-0.3) x10-3/uL Sodium 133 L (135-145) mmol/L Potassium 5.4 H D (3.5-5.3) mmol/L Chloride 101 (100-110) mmol/L Carbon Dioxide 26 (21-32) mmol/L BUN 10 (7-18) mg/dL Creatinine 0.7 (0.70-1.30) mg/dL Est Cr Clr Drug Dosing 80.92 mL/min Estimated GFR (MDRD) > 60 (>60) BUN/Creatinine Ratio 14.3 (9-20) Glucose 99 (80-116) mg/dL Calcium 8.2 L (8.6-10.2) mg/dL Result Diagrams: 08/08/21 06:20 08/08/21 06:20 Geoffrey Results Last 24 hrs: Microbiology 08/04/21 07:30 Urine Culture - Final Urine, Clean Catch Escherichia Coli Proteus Vulgaris Sepsis Event Note - Evaluation Sepsis Screening Result: No Definite Risk - Focused Exam Vital Signs: Vital Signs Temp Pulse Resp BP Pulse Ox 08/08/21 07:47 97.6 F 81 18 176/80 H 98 08/08/21 04:00 97.7 F 79 16 176/68 H 98 08/08/21 00:00 98.1 F 74 16 161/60 H 99 - Problem List & Annotations (1) Frequent falls SNOMED Code(s): 478185028 Code(s): R29.6 - REPEATED FALLS Status: Acute Current Visit: Yes (2) Urinary retention SNOMED Code(s): 641797443 Code(s): R33.9 - RETENTION OF URINE, UNSPECIFIED Status: Acute Current Visit: Yes (3) Hypertension SNOMED Code(s): 42187672 Code(s): I10 - ESSENTIAL (PRIMARY) HYPERTENSION Status: Chronic Current Visit: Yes Qualifiers: Hypertension type: primary hypertension Qualified Code(s): I10 - Essential (primary) hypertension - Problem List Review Problem List Initiated/Reviewed/Updated: Yes - Plan Plan:: Continue current treatment including Augmentin for UTI. I answered the questions of the bedside, patient disposition is expected to be the assisted on Wednesday
[2021-08-08] MEDS: Potassium Chloride 20 MEQ Tab.ER PO SCH ×2 (09:41→20:01)
[2021-08-08] MEDS: Sodium Chloride 1 GM Tab PO SCH ×2 (09:42→20:01)
[2021-08-08] MEDS: Nystatin Crm 15 GM Tube TOP SCH ×2 (09:43→20:02)
[2021-08-08] MEDS: Enoxaparin 40 MG/0.4 ML Syringe SUBCUT SCH (20:01)
--- NOTE | 2021-08-09 08:59 | PCM.PN ---
- General Info Date of Service: 08/09/21 Subjective Update: I spoke with Amadou and the family members at the bedside. Amadou is doing better, has some leg weakness and pain that is chronic. He also has unit obstruction and has a cut in situ. Was admitted for frequent falls and weakness and severe hyponatremia. The labs have since normalized Functional Status: Reports: Pain Controlled - Review of Systems General: Reports: No Symptoms HEENT: Reports: No Symptoms Pulmonary: Reports: No Symptoms - Patient Data Vitals - Most Recent: Last Vital Signs Temp 98.2 F 08/09/21 04:00 Pulse 72 08/09/21 04:00 Resp 16 08/09/21 04:00 BP 168/64 H 08/09/21 04:00 Pulse Ox 98 08/09/21 04:00 Weight - Most Recent: 72.83 kg I&O - Last 24 Hours: Intake & Output 08/08/21 08/09/21 08/09/21 22:59 06:59 14:59 Intake Total 50 60 Output Total 550 700 Balance -500 -640 Med Orders - Current: Current Medications Hydrocodone Bitart/Acetaminophen (Acetaminophen/Hydrocodone 325-5 Mg Tab) 1 tab PO Q4H PRN PRN Reason: Pain (severe 7-10) Last Admin: 08/07/21 01:30 Dose: 1 tab Documented by: Enoxaparin Sodium (Enoxaparin 40 Mg/0.4 Ml Syringe) 40 mg SUBCUT BEDTIME [facility] Last Admin: 08/08/21 20:01 Dose: 40 mg Documented by: Labetalol HCl (Labetalol 20 Mg/4 Ml Syringe) 10 mg IVPUSH Q6H PRN; Protocol PRN Reason: Hypertension Loperamide HCl (Loperamide 2 Mg Cap) 2 mg PO Q4H PRN PRN Reason: Diarrhea Last Admin: 08/04/21 19:18 Dose: 2 mg Documented by: Nystatin (Nystatin Crm 15 Gm Tube) 0 gm TOP BID [facility] Last Admin: 08/08/21 20:02 Dose: 1 applic Documented by: Sodium Chloride (Sodium Chloride 0.9% 10 Ml Syringe) 10 ml FLUSH ASDIRECTED PRN PRN Reason: Keep Vein Open Last Admin: 08/05/21 10:08 Dose: 10 ml Documented by: Sodium Chloride (Sodium Chloride 1 Gm Tab) 1 gm PO BID [facility] Last Admin: 08/08/21 20:01 Dose: 1 gm Documented by: Discontinued Medications Amoxicillin/Clavulanate Potassium (Amoxicillin/Clavulanate K 875-125 Mg Tab) 1 tab PO Q12H [facility] Stop: 08/08/21 23:59 Last Admin: 08/08/21 17:11 Dose: 1 tab Documented by: Ceftriaxone Sodium (Ceftriaxone 1 Gm Vial) 1 gm IVPUSH Q24H [facility] Last Admin: 08/05/21 09:01 Dose: 1 gm Documented by: Diatrizoate Meglum/Diatrizoate Sod (Diatrizoate Meglumine/Diatrizoate Sodium 37% 30 Ml Bottle) 30 ml PO . DIRECTED ONE Stop: 08/04/21 12:01 Last Admin: 08/04/21 13:32 Dose: 30 ml Documented by: Sodium Chloride (Normal Saline) 1,000 mls @ 500 mls/hr IV ASDIRECTED [facility] Last Admin: 08/04/21 08:30 Dose: 500 mls/hr Documented by: Magnesium Sulfate (Magnesium Sulfate In Water 2 Gm/50 Ml) 50 mls @ 50 mls/hr IV NOW ONE Stop: 08/05/21 08:29 Last Admin: 08/05/21 09:00 Dose: 50 mls/hr Documented by: Iopamidol (Iopamidol 755 Mg/Ml 75 Ml Bottle) 75 ml IV ONETIME ONE Stop: 08/04/21 12:01 Last Admin: 08/04/21 13:31 Dose: 75 ml Documented by: Potassium Chloride (Potassium Chloride 20 Meq Tab.Er) 40 meq PO BID [facility] Last Admin: 08/08/21 20:01 Dose: 40 meq Documented by: - Exam Urinary Catheter Total Time: 4Days 10Hours General: Alert, Oriented HEENT: Pupils Equal Neck: Supple Lungs: Clear to Auscultation Cardiovascular: Regular Rate - Patient Data Result Diagrams: 08/08/21 06:20 08/08/21 06:20 Sepsis Event Note - Evaluation Sepsis Screening Result: No Definite Risk - Focused Exam Vital Signs: Vital Signs Temp Pulse Resp BP BP Pulse Ox 08/09/21 04:00 98.2 F 72 16 168/64 H 98 08/09/21 00:00 98.0 F 68 16 155/62 H 97 - Problem List & Annotations (1) Frequent falls SNOMED Code(s): 476086380 Code(s): R29.6 - REPEATED FALLS Status: Acute Current Visit: Yes (2) Urinary retention SNOMED Code(s): 777814841 Code(s): R33.9 - RETENTION OF URINE, UNSPECIFIED Status: Acute Current Visit: Yes (3) Hypertension SNOMED Code(s): 70872594 Code(s): I10 - ESSENTIAL (PRIMARY) HYPERTENSION Status: Chronic Current Visit: Yes Qualifiers: Hypertension type: primary hypertension Qualified Code(s): I10 - Essential (primary) hypertension - Problem List Review Problem List Initiated/Reviewed/Updated: Yes - My Orders Last 24 Hours: My Active Orders 08/08/21 09:47 Renew/Continue Urinary Catheter [OM.PC] Routine 08/09/21 21:00 amLODIPine [Norvasc] 10 mg PO BEDTIME - Plan Plan:: Amadou has improved. His potassium is up to 5.4. Out of his blood pressure still high. I'll discontinue potassium supplementation, and start his home dose of Nor vasc but increase it to 10 mg once a day. I will repeat a basic panel Wednesday as before he goes. He is to stay over the weekend to control his blood pressure and monitor his potassium
[2021-08-09] MEDS: Nystatin Crm 15 GM Tube TOP SCH ×2 (09:50→21:14)
[2021-08-09] MEDS: Sodium Chloride 1 GM Tab PO SCH ×2 (09:51→21:14)
[2021-08-09] MEDS: Acetaminophen/HYDROcodone 325-5 MG Tab PO PRN ×2 (11:16→15:33)
[2021-08-09] MEDS: Enoxaparin 40 MG/0.4 ML Syringe SUBCUT SCH (21:15)
[2021-08-09] MEDS: amLODIPine 10 MG Tab PO SCH (21:17)
[2021-08-10] MEDS: Nystatin Crm 15 GM Tube TOP SCH ×2 (08:03→20:18)
[2021-08-10] MEDS: Sodium Chloride 1 GM Tab PO SCH ×2 (08:04→20:17)
--- NOTE | 2021-08-10 08:38 | PCM.PN ---
- General Info Date of Service: 08/10/21 Subjective Update: I spoke with Amadou and the family members at the bedside. Amadou is doing better, has some leg weakness and pain that is chronic. He also has unit obstruction and has a cut in situ. Was admitted for frequent falls and weakness and severe hyponatremia. The labs have since normalized Functional Status: Reports: Pain Controlled - Review of Systems General: Reports: No Symptoms HEENT: Reports: No Symptoms Pulmonary: Reports: No Symptoms - Patient Data Vitals - Most Recent: Last Vital Signs Temp 97.5 F 08/10/21 04:00 Pulse 78 08/10/21 04:00 Resp 14 08/10/21 04:00 BP 168/74 H 08/10/21 04:00 Pulse Ox 99 08/10/21 04:00 Weight - Most Recent: 72.83 kg I&O - Last 24 Hours: Intake & Output 08/09/21 08/10/21 08/10/21 22:59 06:59 14:59 Intake Total 60 200 400 Output Total 180 750 Balance -120 -550 400 Med Orders - Current: Current Medications Hydrocodone Bitart/Acetaminophen (Acetaminophen/Hydrocodone 325-5 Mg Tab) 1 tab PO Q4H PRN PRN Reason: Pain (severe 7-10) Last Admin: 08/09/21 15:33 Dose: 1 tab Documented by: Amlodipine Besylate (Amlodipine 10 Mg Tab) 10 mg PO BEDTIME [facility] Last Admin: 08/09/21 21:17 Dose: 10 mg Documented by: Enoxaparin Sodium (Enoxaparin 40 Mg/0.4 Ml Syringe) 40 mg SUBCUT BEDTIME [facility] Last Admin: 08/09/21 21:15 Dose: 40 mg Documented by: Labetalol HCl (Labetalol 20 Mg/4 Ml Syringe) 10 mg IVPUSH Q6H PRN; Protocol PRN Reason: Hypertension Loperamide HCl (Loperamide 2 Mg Cap) 2 mg PO Q4H PRN PRN Reason: Diarrhea Last Admin: 08/04/21 19:18 Dose: 2 mg Documented by: Nystatin (Nystatin Crm 15 Gm Tube) 0 gm TOP BID [facility] Last Admin: 08/10/21 08:03 Dose: 1 applic Documented by: Sodium Chloride (Sodium Chloride 0.9% 10 Ml Syringe) 10 ml FLUSH ASDIRECTED PRN PRN Reason: Keep Vein Open Last Admin: 08/05/21 10:08 Dose: 10 ml Documented by: Sodium Chloride (Sodium Chloride 1 Gm Tab) 1 gm PO BID [facility] Last Admin: 08/10/21 08:04 Dose: 1 gm Documented by: Discontinued Medications Amoxicillin/Clavulanate Potassium (Amoxicillin/Clavulanate K 875-125 Mg Tab) 1 tab PO Q12H [facility] Stop: 08/08/21 23:59 Last Admin: 08/08/21 17:11 Dose: 1 tab Documented by: Ceftriaxone Sodium (Ceftriaxone 1 Gm Vial) 1 gm IVPUSH Q24H [facility] Last Admin: 08/05/21 09:01 Dose: 1 gm Documented by: Diatrizoate Meglum/Diatrizoate Sod (Diatrizoate Meglumine/Diatrizoate Sodium 37% 30 Ml Bottle) 30 ml PO . DIRECTED ONE Stop: 08/04/21 12:01 Last Admin: 08/04/21 13:32 Dose: 30 ml Documented by: Sodium Chloride (Normal Saline) 1,000 mls @ 500 mls/hr IV ASDIRECTED [facility] Last Admin: 08/04/21 08:30 Dose: 500 mls/hr Documented by: Magnesium Sulfate (Magnesium Sulfate In Water 2 Gm/50 Ml) 50 mls @ 50 mls/hr IV NOW ONE Stop: 08/05/21 08:29 Last Admin: 08/05/21 09:00 Dose: 50 mls/hr Documented by: Iopamidol (Iopamidol 755 Mg/Ml 75 Ml Bottle) 75 ml IV ONETIME ONE Stop: 08/04/21 12:01 Last Admin: 08/04/21 13:31 Dose: 75 ml Documented by: Potassium Chloride (Potassium Chloride 20 Meq Tab.Er) 40 meq PO BID [facility] Last Admin: 08/08/21 20:01 Dose: 40 meq Documented by: - Exam Urinary Catheter Total Time: 5Days 17Hours General: Alert HEENT: Pupils Equal Neck: Supple Lungs: Clear to Auscultation Cardiovascular: Regular Rate GI/Abdominal Exam: Normal Bowel Sounds Skin: Warm - Patient Data Result Diagrams: 08/08/21 06:20 08/08/21 06:20 Sepsis Event Note - Evaluation Sepsis Screening Result: No Definite Risk - Focused Exam Vital Signs: Vital Signs Temp Pulse Resp BP BP Pulse Ox 08/10/21 04:00 97.5 F 78 14 168/74 H 99 08/10/21 00:00 97.8 F 77 18 169/83 H 96 08/09/21 21:17 166/61 H - Problem List & Annotations (1) Frequent falls SNOMED Code(s): 374271513 Code(s): R29.6 - REPEATED FALLS Status: Acute Current Visit: Yes (2) Urinary retention SNOMED Code(s): 963595560 Code(s): R33.9 - RETENTION OF URINE, UNSPECIFIED Status: Acute Current Visit: Yes (3) Hypertension SNOMED Code(s): 86689274 Code(s): I10 - ESSENTIAL (PRIMARY) HYPERTENSION Status: Chronic Current Visit: Yes Qualifiers: Hypertension type: primary hypertension Qualified Code(s): I10 - Essential (primary) hypertension - Problem List Review Problem List Initiated/Reviewed/Updated: Yes - My Orders Last 24 Hours: My Active Orders 08/09/21 21:00 amLODIPine [Norvasc] 10 mg PO BEDTIME 08/10/21 09:00 Hydrochlorothiazide/Lisinopril [Lisinopril/HCTZ 10-12.5 MG] 1 tab PO DAILY 08/11/21 05:11 BASIC METABOLIC PANEL,BMP [CHEM] AM - Plan Plan:: I recommend adding lisinopril hctz, Norvasc to control his blood pressure. Repeat electrolytes tomorrow before discharge
[2021-08-10] MEDS: Hydrochlorothiazide/Lisinopril 12.5-10 MG Tab PO SCH (13:46)
[2021-08-10] MEDS: amLODIPine 10 MG Tab PO SCH (20:17)
[2021-08-10] MEDS: Enoxaparin 40 MG/0.4 ML Syringe SUBCUT SCH (20:18)
[2021-08-11] MEDS ORDERED: Tuberculin, PPD 5 Units/0.1 ML 1 ML MDV IDERM ONE (09:00)
[2021-08-11] MEDS: Nystatin Crm 15 GM Tube TOP SCH (09:11)
[2021-08-11] MEDS: Hydrochlorothiazide/Lisinopril 12.5-10 MG Tab PO SCH (09:11)
[2021-08-11] MEDS: Sodium Chloride 1 GM Tab PO SCH (09:12)
--- NOTE | 2021-08-12 00:15 | DISCH ---
DISCHARGE DATE: 08/11/2021 REASON FOR ADMISSION: Hyponatremia, frequent falls, hypertension, hypokalemia, head injury. DISCHARGE DIAGNOSES: Hyponatremia, frequent falls, hypertension, hypokalemia, head injury, urinary obstruction due to BPH. CONSULTATION: There was a telephone consultation with Urology by Dr. Villeda. PROCEDURES: None. BRIEF HISTORY AND HOSPITAL COURSE: This is an 85-year-old male, a patient of Dr. Rucker, who was brought in because of frequent falls at home. He was found to have a very low sodium of 118. Fluid was restricted and he was treated with some fluid resuscitation. In the hospital, he was found to have some BPH and urinary catheter was placed on advice of the urologist. His sodium and potassium improved. He was ready to go to the skilled nursing because he is unable to stay independently any longer. DISCHARGE MEDICATIONS: 1. Lisinopril/hydrochlorothiazide 10/12.5 one tablet a day for hypertension. 2. Amlodipine 10 mg daily for hypertension. 3. Hydrocodone 1 tablet every 6 hours p.r.n. for pain. FOLLOWUP: He will see Dr. Rucker within the next 1 month in the skilled nursing. I spent more than 35 minutes in the discharge of the patient. /[id number] WENDI/LUISA
== END 2021-08-11 11:05 | DRG 690 ==
LOC: FB.ED 06:51 → FB.MS 09:50
PROVIDERS: ADMIT Emergency Medicine; ATTEND Student in an Organized Health Care Education/Training Program
DX: N39.0 Urinary tract infection, site not specified (principal); E87.1 Hypo-osmolality and hyponatremia; S70.02XA Contusion of left hip, initial encounter; W19.XXXA Unspecified fall, initial encounter; N13.8 Other obstructive and reflux uropathy; Z91.81 History of falling; S09.8XXA Other specified injuries of head, initial encounter; B37.89 Other sites of candidiasis; B35.1 Tinea unguium; Z88.8 Allergy status to other drugs, medicaments and biological substances; R29.6 Repeated falls; I10 Essential (primary) hypertension; E87.6 Hypokalemia; N40.1 Benign prostatic hyperplasia with lower urinary tract symptoms; H91.90 Unspecified hearing loss, unspecified ear; R15.9 Full incontinence of feces; R32 Unspecified urinary incontinence; F17.210 Nicotine dependence, cigarettes, uncomplicated; Z20.822 Contact with and (suspected) exposure to COVID-19; E87.8 Other disorders of electrolyte and fluid balance, not elsewhere classified; R60.0 Localized edema; B37.2 Candidiasis of skin and nail; S09.90XA Unspecified injury of head, initial encounter; Z88.6 Allergy status to analgesic agent; Z79.899 Other long term (current) drug therapy; E83.42 Hypomagnesemia; R33.8 Other retention of urine; B96.20 Unspecified Escherichia coli [E. coli] as the cause of diseases classified elsewhere; B96.4 Proteus (mirabilis) (morganii) as the cause of diseases classified elsewhere
CPT/HCPCS: 36415; 70450; 71045; 73502; 80053; 81001; 82550; 83735; 84484; 85025; 87086; 87186 ×2; 93005; 99285; J7030; U0002; 51702; 74177; 80048; 86580; 87088; 93306; 97161-GP; 97165-GO; 97530-GO; 97530-GP; 97542-GO; A9270-GY; J0696; J1650; J3475; Q9963; Q9967

== ENCOUNTER 2022-04-08 09:54 | Emergency (ER) | payer MEDICARE, OTHER ==
[2022-04-08] MEDS ORDERED: Sodium Chloride 0.9% 10 ML Syringe FLUSH PRN (10:22)
[2022-04-08] MEDS ORDERED: Sodium Chloride 0.9% 1,000 ML IV SCH (10:45)
== END 2022-04-08 11:55 | disposition home or self-care (01) ==
LOC: FB.ED 09:54
DX: E87.1 Hypo-osmolality and hyponatremia (principal); E87.8 Other disorders of electrolyte and fluid balance, not elsewhere classified; I10 Essential (primary) hypertension; Z88.8 Allergy status to other drugs, medicaments and biological substances
CPT/HCPCS: 99282; 99283; J7030